=== PATIENT | male | born 1970 | race Caucasian/White ===

== ENCOUNTER 2020-08-18 08:36 | Outpatient (CLI) | payer BC, SELFPAY ==
[2020-08-18 09:03] LABS: Basophils Percent Auto 0.7 % (0.2-1.2); Eosinophils Absolute Auto 0.1 K/mm3 (0-0.3); Eosinophils Percent Auto 2.2 % (0-4.4); Hemoglobin 12.9 g/dL (14.0-18.0); Immature Granulocyte Absolute 0.01 K/mm3 (0.00-0.031); Immature Granulocyte Percent A 0.2 % (0-0.5); Lymphocytes Percent Auto 30.6 % (18.3-44.2); Mean Corpuscular HGB Conc 33.1 g/dl (32-36); Mean Corpuscular Hemoglobin 27.9 pg (26-34); Mean Corpuscular Volume 84.2 fl (80-100); Mean Platelet Volume 10.2 fl (7.4-10.4); Monocytes Absolute Auto 0.4 K/mm3 (0.1-0.6); Neutrophils Absolute Auto 3.3 K/mm3 (1.3-6.7); Neutrophils Percent Auto 59.3 % (45.5-73.1); Platelet Count Result 247 k/mm3 (150-375); Red Blood Count 4.63 M/mm3 (4.6-6.20); Red Cell Distribution Width 11.9 % (11.5-14.5); White Blood Count 5.6 K/mm3 (4.5-10.0)
[2020-08-18 09:15] LABS: Alanine Aminotransferase 43 U/L (4-50); Albumin Level 4.3 g/dL (3.5-5.1); Alkaline Phosphatase 94 U/L (38-126); Anion Gap 7 mmol/L (8-16); Aspartate Amino Transferase 32 U/L (17-59); Bilirubin,Total 0.5 mg/dL (0.2-1.3); Blood Urea Nitrogen 14 mg/dL (9-20); Calcium 8.9 mg/dL (8.4-10.2); Carbon Dioxide 30 mmol/L (22-30); Chloride 102 mmol/L (98-107); Cholesterol 203 mg/dL (0-200); Estimated Glomerular Filt Rate > 60; Glucose 116 mg/dL (75-110); HDL Direct 27 mg/dL; Potassium 4.3 mmol/L (3.4-5.0); Sodium 139 mmol/L (137-145); Triglycerides 113 mg/dL (<150); Uric Acid 7.3 mg/dL (3.5-8.5)
[2020-08-18 09:17] LABS: Hemoglobin A1C 5.6 % (<5.7)
[2020-08-18 09:25] LABS: LDL Cholesterol Direct 147 mg/dL
[2020-08-18 11:25] LABS: Erythrocyte Sedimentation Rate 17 mm/hr (0-20)
[2020-08-21 21:18] LABS: Vitamin D 1,25 (OH)2 Total 53 pg/mL (18-72); Vitamin D2 1,25 (OH)2 19 pg/mL; Vitamin D3 1,25 (OH)2 34 pg/mL
== END 2020-08-18 08:37 | disposition home or self-care (01) ==
LOC: ANHLAB 08:38
PROVIDERS: PCP Family Medicine; Visit Provider Physician Assistant
DX: M10.9 Gout, unspecified (principal); E78.2 Mixed hyperlipidemia; K21.9 Gastro-esophageal reflux disease without esophagitis; R73.01 Impaired fasting glucose; E55.9 Vitamin D deficiency, unspecified
CPT/HCPCS: 36415; 80053; 80061; 82652; 83036; 84550; 85025; 85652

== ENCOUNTER 2020-09-16 06:52 | Outpatient (NON) | payer BC, SELFPAY ==
[2020-09-16 19:01] LABS: SARS-CoV-2 RNA PCR Negative
== END 2020-09-16 06:53 ==
PROVIDERS: PCP Family Medicine; Visit Provider Family Medicine
DX: Z20.828 Contact with and (suspected) exposure to other viral communicable diseases (principal); R68.89 Other general symptoms and signs
CPT/HCPCS: 87635; C9803; U0003

== ENCOUNTER → 2021-01-15 08:16 | Outpatient (CLI) | payer BC, SELFPAY ==
[2021-01-15 20:12] LABS: SARS-CoV-2 RNA PCR Negative
== END ==
PROVIDERS: PCP Family Medicine; Visit Provider Physician Assistant
DX: R68.89 Other general symptoms and signs (principal); Z20.822 Contact with and (suspected) exposure to COVID-19
CPT/HCPCS: C9803; U0003; U0005

== ENCOUNTER → 2021-06-15 16:14 | Outpatient (CLI) | payer BC, SELFPAY ==
--- NOTE | ~2021-06-15 | XR_ITS ---
XR chest 2V DATE: 06/15/2021 16:32 INDICATION: Cough TECHNIQUE: PA and lateral views COMPARISON: 09/17/2019 PA and lateral chest FINDINGS: Borderline heart size. No hilar or mediastinal enlargement. No pulmonary infiltrate or consolidation, pleural effusion or pulmonary vascular congestion or pneumo thorax is detected. IMPRESSION: Borderline heart size No active pulmonary disease Reviewed, dictated and finalized at location A.
== END ==
PROVIDERS: PCP Family Medicine; Visit Provider Family Medicine
DX: R05 Cough (principal)
CPT/HCPCS: 71046

== ENCOUNTER 2021-06-18 10:41 | Outpatient (CLI) | payer BC, SELFPAY ==
[2021-06-18 11:05] LABS: Basophils Percent Auto 0.5 % (0.2-1.2); Eosinophils Absolute Auto 0.1 K/mm3 (0-0.3); Eosinophils Percent Auto 1.8 % (0-4.4); Hematocrit 43.6 % (42.0-52.0); Hemoglobin 14.1 g/dL (14.0-18.0); Immature Granulocyte Absolute 0.03 K/mm3 (0.00-0.031); Immature Granulocyte Percent A 0.4 % (0-0.5); Lymphocytes Absolute Auto 1.46 K/mm3 (0.9-3.2); Lymphocytes Percent Auto 18.6 % (18.3-44.2); Mean Corpuscular HGB Conc 32.3 g/dl (32-36); Mean Corpuscular Hemoglobin 28.1 pg (26-34); Mean Corpuscular Volume 86.9 fl (80-100); Mean Platelet Volume 9.9 fl (7.4-10.4); Monocytes Absolute Auto 0.4 K/mm3 (0.1-0.6); Monocytes Percent Auto 5.6 % (2.6-8.5); Neutrophils Absolute Auto 5.8 K/mm3 (1.3-6.7); Neutrophils Percent Auto 73.1 % (45.5-73.1); Platelet Count Result 213 k/mm3 (150-375); Red Blood Count 5.02 M/mm3 (4.6-6.20); Red Cell Distribution Width 12.2 % (11.5-14.5); White Blood Count 7.9 K/mm3 (4.5-10.0)
[2021-06-18 11:18] LABS: Alanine Aminotransferase 37 U/L (4-50); Albumin Level 4.5 g/dL (3.5-5.1); Alkaline Phosphatase 95 U/L (38-126); Anion Gap 9 mmol/L (8-16); Aspartate Amino Transferase 33 U/L (17-59); Bilirubin,Total 0.7 mg/dL (0.2-1.3); Blood Urea Nitrogen 14 mg/dL (9-20); Calcium 8.9 mg/dL (8.4-10.2); Carbon Dioxide 27 mmol/L (22-30); Chloride 104 mmol/L (98-107); Cholesterol 266 mg/dL (0-200); Estimated Glomerular Filt Rate > 60; Glucose 108 mg/dL (65-110); HDL Direct 35 mg/dL; Potassium 4.7 mmol/L (3.4-5.0); Sodium 140 mmol/L (137-145); Triglycerides 170 mg/dL (<150); Uric Acid 6.7 mg/dL (3.5-8.5)
[2021-06-18 11:28] LABS: LDL Cholesterol Direct 178 mg/dL
== END 2021-06-18 10:42 | disposition home or self-care (01) ==
LOC: ANHLAB 10:44
PROVIDERS: PCP Family Medicine; Visit Provider Family Medicine
DX: E78.2 Mixed hyperlipidemia (principal); E11.9 Type 2 diabetes mellitus without complications; E79.0 Hyperuricemia without signs of inflammatory arthritis and tophaceous disease; I10 Essential (primary) hypertension
CPT/HCPCS: 36415; 80053; 80061; 83036; 84550; 85025

== ENCOUNTER 2022-02-05 10:59 | Emergency (ER) | payer BC, SELFPAY ==
--- NOTE | ~2022-02-05 | CT_ITS ---
EXAMINATION: CT abdomen pelvis w con INDICATION: Epigastric pain TECHNIQUE: Computed tomographic images of the abdomen and pelvis were obtained after the administrati on of 100 cc of Omnipaque 350 intravenous contrast. The dose-length product (DLP) was 991.03 mGy-cm. Automated exposure control and iterative reconstruction technique were employed. COMPARISON: 02/10/2018 FINDINGS: Minimal dependent atelectasis is present in the lung bases. The heart size is normal. Punct ate calcifications in an otherwise normal spleen likely represent healed granulomatous disease. The l iver is diffusely low in attenuation when compared with the spleen, consistent with hepatic steatosis . The pancreas, gallbladder, and adrenal glands are normal. Cysts of the kidneys measure up to 1.9 cm on the left. There is an indeterminate 11 mm exophytic soft tissue attenuation mass of the right kid valdo lower pole. No pathologically enlarged abdominal or pelvic lymph nodes are identified. There is n o free intraperitoneal gas or evidence of bowel obstruction. The appendix is normal. There is mild sourav mbar spondylosis. IMPRESSION: 1. No CT correlate for the patient's symptoms. 2. Indeterminate right kidney mass. Further evaluation with nonemergent CT or MRI without and with co ntrast is recommended. Reviewed, dictated and finalized at location B. HERMAL PRODUCTION MANAGER IMPRESSION: 1. No CT correlate for the patient's symptoms. 2. Indeterminate right kidney mass. Further evaluation with nonemergent CT or M RI without and with contrast is recommended.
--- NOTE | ~2022-02-05 | XR_ITS ---
EXAMINATION: XR chest 2V DATE: 02/05/2022 11:33 INDICATION: Left chest pain. TECHNIQUE: Frontal and lateral views of the chest were obtained. COMPARISON: Chest 2 views 09/17/2019 FINDINGS: The chest demonstrates clear lungs without pneumonia, pleural effusion, or pneumothorax. Th e heart size is normal. IMPRESSION: 1. No acute cardiopulmonary disease. Reviewed, dictated and finalized at location A. ISION LAYOUT WORKER
--- NOTE | 2022-02-05 11:00 | ECG_ITS ---
Measurements Intervals [place] Rate: 61 P: 44 AK: 153 QRS: 29 QRSD: 90 T: 53 QT: 396 QTc: 401 Interpretive Statements SINUS RHYTHM NORMAL ECG COMPARED TO ECG 09/17/2019 19:50:42 NO SIGNIFICANT CHANGES Electronically Signed On 02-05-2022 15:16:43 AMMUNITION SPECIALIST by Mainor Quarles M.D.
[2022-02-05 11:17] VITALS: BP 138/76; PULSE 70; RESP 16; TEMP 36.5; O2SAT 99
[2022-02-05 11:27] LABS: Basophils Percent Auto 0.4 % (0.2-1.2); Eosinophils Absolute Auto 0.1 K/mm3 (0-0.3); Eosinophils Percent Auto 0.9 % (0-4.4); Hematocrit 43.4 % (42.0-52.0); Hemoglobin 14.1 g/dL (14.0-18.0); Immature Granulocyte Absolute 0.03 K/mm3 (0.00-0.031); Immature Granulocyte Percent A 0.4 % (0-0.5); Lymphocytes Absolute Auto 1.54 K/mm3 (0.9-3.2); Lymphocytes Percent Auto 19.8 % (18.3-44.2); Mean Corpuscular HGB Conc 32.5 g/dl (32-36); Mean Corpuscular Hemoglobin 28.5 pg (26-34); Mean Corpuscular Volume 87.9 fl (80-100); Monocytes Absolute Auto 0.4 K/mm3 (0.1-0.6); Monocytes Percent Auto 5.3 % (2.6-8.5); Neutrophils Absolute Auto 5.7 K/mm3 (1.3-6.7); Neutrophils Percent Auto 73.2 % (45.5-73.1); Platelet Count Result 212 k/mm3 (150-375); Red Blood Count 4.94 M/mm3 (4.6-6.20); Red Cell Distribution Width 12.4 % (11.5-14.5); White Blood Count 7.8 K/mm3 (4.5-10.0)
[2022-02-05 11:40] LABS: Alanine Aminotransferase 45 U/L (4-50); Albumin Level 4.5 g/dL (3.5-5.1); Alkaline Phosphatase 112 U/L (38-126); Anion Gap 10 mmol/L (8-16); Aspartate Amino Transferase 31 U/L (17-59); Bilirubin,Total 0.4 mg/dL (0.2-1.3); Blood Urea Nitrogen 14 mg/dL (9-20); Calcium 8.6 mg/dL (8.4-10.2); Carbon Dioxide 26 mmol/L (22-30); Chloride 105 mmol/L (98-107); Estimated Glomerular Filt Rate > 60; Glucose 105 mg/dL (65-110); Lipase 73 U/L (23-300); Potassium 4.4 mmol/L (3.4-5.0); Prothrombin Time 12.5 Seconds (11.1-14.7); Sodium 141 mmol/L (137-145)
[2022-02-05 11:41] LABS: Partial Thromboplastin Time 27.1 SECONDS (22.3-36.8)
[2022-02-05 11:51] LABS: Troponin I < 0.012 ng/mL (0.000-0.034)
[2022-02-05] MEDS: ASPIRIN 81 MG CHEWABLE TABLET 324 MG PO (13:00)
--- NOTE | 2022-02-05 13:24 | ED.CHESTPAIN ---
HPI - Chest Pain General Chief Complaint: Chest Pain Stated Complaint: CP Time Seen by Provider: 02/05/22 12:42 History of Present Illness HPI narrative: 52-year-old male presents to the emergency room with acute onset of midsternal chest discomfort. Patient states pain started at 845 this morning when he was sitting down at his desk. Patient describes the pain as a squeezing sensation, that is reproducible with inspiration. Denies radiating pain. Denies shortness of breath or difficulty breathing. Denies nausea or vomiting. Denies cardiac history. Does have a history of acid reflux, but states this pain is different. Denies alleviating or aggravating factors with the chest pain, other than inspiration Related Data Allergies Allergy/AdvReac Type Severity Reaction Status Date / Time No Known Allergies Allergy unknown Uncoded 06/18/21 09:30 Review of Systems Review of Systems: CONSTITUTIONAL: Denies fever, chills, or sweats. EYES: Denies visual changes, redness, or discharge. ENT: Denies rhinorrhea, congestion, sore throat, or otalgia. CARDIOVASCULAR: Reports chest pain. denies palpitations, or edema. RESPIRATORY: Denies cough or dyspnea. GASTROINTESTINAL: Denies abdominal pain, nausea, vomiting, or diarrhea. GENITOURINARY: Denies dysuria or hematuria. SKIN: Denies rash or itching. MUSCULOSKELETAL: Denies back pain, joint pain, or myalgia. NEUROLOGIC: Denies headache, numbness, dizziness, or weakness. PSYCHIATRIC: Denies anxiety or depression. [facility] Past Medical History Medical History Gout Mixed hyperlipidemia Prediabetes Vitamin D deficiency, unspecified Surgical History Surgical History History of umbilical hernia repair Family History Family History Mother Hypertension Father Hypertension Family history of malignant neoplasm Sibling Hypertension Other Diabetes mellitus Social History Social History Social History: Smoking status: Never smoker Second hand tobacco smoke exposure: No Alcohol intake: current Alcohol use details: occasionally Substance use: never Substance use type: does not use Gender identity (if verbalized by the patient): Male Sexual Orientation (if Verbalized by the Patient): Straight or Heterosexual Exam Narrative: GENERAL: Well-appearing, well-nourished, and in no acute distress. HEAD: Normocephalic, atraumatic. EYES: PERRLA and EOMI. ENT: Nares clear, no rhinorrhea or epistaxis. Mucous membranes moist. NECK: Supple. No adenopathy or masses. No carotid bruits or JVD CHEST: Clear to auscultation. No respiratory distress. No wheezes rales or rhonchi HEART: Regular rate and rhythm. No murmur heard. Normal peripheral pulses. ABDOMEN: Soft, nontender, nondistended, normal active bowel sounds. EXTREMITIES: Normal range of motion. No edema. SKIN: Warm, dry, no rash. NEURO: No focal deficits. Alert and oriented x3. PSYCH: Normal mood and affect. Course Vital Signs Vital signs: Vital Signs Temperature 36.5 C 02/05/22 11:17 Pulse Rate 70 02/05/22 11:17 Respiratory Rate 16 02/05/22 11:17 Blood Pressure 138/76 02/05/22 11:17 Pulse Oximetry 99 02/05/22 11:17 Temperature 36.5 C 02/05/22 11:17 Pulse Rate 70 02/05/22 11:17 Respiratory Rate 16 02/05/22 11:17 Blood Pressure 138/76 02/05/22 11:17 Pulse Oximetry 99 02/05/22 11:17 MDM - Chest Pain MDM Narrative Medical decision making narrative: 52-year-old male presented to emergency room with acute onset of epigastric discomfort, stating it felt like a squeezing sensation. CBC and CMP were unremarkable. Initial troponin and 3-hour troponin were both negative. Patient given a dose of GI cocktail with minimal relief. CT shows no correlat
[2022-02-05] MEDS: BELLADONNA ALK/PHENOB ELIX 10 ML, MAG HYDROX/ALUMINUM HYD/SIMETH 30 ML, LIDOCAINE HCL 2... PO (13:25)
[2022-02-05 14:21] LABS: D Dimer < 0.22 ug/mL (<0.48)
[2022-02-05 14:23] LABS: Troponin I < 0.012 ng/mL (0.000-0.034)
[2022-02-05 16:32] VITALS: BP 135/80; PULSE 63; RESP 18; O2SAT 98
== END 2022-02-05 16:33 | disposition home or self-care (01) ==
PROVIDERS: Emergency Medicine; Emergency Provider Nurse Practitioner Family; PCP Family Medicine
DX: K21.9 Gastro-esophageal reflux disease without esophagitis (principal); M10.9 Gout, unspecified; E78.2 Mixed hyperlipidemia; R73.03 Prediabetes; E55.9 Vitamin D deficiency, unspecified; N28.89 Other specified disorders of kidney and ureter
CPT/HCPCS: 36415; 71046; 74177; 80053; 83690; 84484; 85025; 85380; 85610; 85730; 93005; 99284; A9270; Q9967

== ENCOUNTER → 2022-02-19 12:48 | Outpatient (CLI) | payer BC, SELFPAY ==
--- NOTE | ~2022-02-19 | MR_ITS ---
EXAMINATION: MR abdomen wo/w con DATE: 02/19/2022 14:02 INDICATION: Right kidney mass. Other specified disorders of kidney and ureter. TECHNIQUE: Magnetic resonance imaging (MRI) of the abdomen was performed without and with 19 mL Multi Eduardo intravenous contrast. Sequences included coronal T2-weighted FS FSE, coronal and axial FIESTA F S, coronal LAVA-flex, axial LAVA, axial T2-weighted FSE, axial T1-weighted dual-echo FSPGR, axial STI R FSE, and axial DWI. Postcontrast sequences included coronal LAVA-flex and a time course of axial LA VA. COMPARISON: CT abdomen and pelvis 02/05/2022 FINDINGS: There is diffuse hepatic steatosis. There is cystic thickening of the wall of the fundus of the gallb ladder, consistent with adenomyomatosis. The spleen, pancreas, and adrenal glands are normal. There a re cysts in the kidneys measuring up to 2.4 cm on the left. There are no dilated loops of bowel. Ther e are no pathologically enlarged lymph nodes. There is no free intraperitoneal fluid. IMPRESSION: 1. Benign cysts in the kidneys. 2. Diffuse hepatic steatosis. Reviewed, dictated and finalized at location A.
== END ==
PROVIDERS: PCP Family Medicine; Visit Provider Nurse Practitioner Gerontology
DX: N28.1 Cyst of kidney, acquired (principal); K76.0 Fatty (change of) liver, not elsewhere classified
CPT/HCPCS: 74183; A9577

== ENCOUNTER 2022-03-16 12:17 | Outpatient (CLI) | payer BC, SELFPAY ==
[2022-03-16 12:51] LABS: Alanine Aminotransferase 41 U/L (4-50); Albumin Level 4.6 g/dL (3.5-5.1); Alkaline Phosphatase 98 U/L (38-126); Amylase 94 U/L (30-110); Aspartate Amino Transferase 27 U/L (17-59); Bilirubin,Total 0.3 mg/dL (0.2-1.3); Lipase 120 U/L (23-300)
== END 2022-03-16 12:18 | disposition home or self-care (01) ==
LOC: ANHSURGERY 12:22
PROVIDERS: PCP Family Medicine; Visit Provider Surgery
DX: K81.1 Chronic cholecystitis (principal); Z01.818 Encounter for other preprocedural examination
CPT/HCPCS: 36415; 80076; 82150; 83690; 86850; 86900; 86901

== ENCOUNTER 2022-03-17 00:58 | Day surgery (SDC) | payer BC, SELFPAY ==
[2022-03-10 13:39] VITALS: BMI 29.7
--- NOTE | 2022-03-10 13:47 | PC.NURSE ---
Report to the Outpatient Waiting Room, entrance under the green pavilion located off [facility], at time 11:30 on date 03/17/22. OR Time: 1:30. - You and your visitor will be asked a series of questions to screen for COVID 19 for your protection. - A mask is required within the hospital. One visitor will be allowed to accompany the patient into the hospital. Patients visitor will be instructed to remain with patient at all times or leave the building. We will allow the visitor to come back to the postoperative area when patient is ready. Preoperative COVID Testing Requirements: No COVID Test needed if: (proof is required; if not received patient will have Rapid Test prior to entry) - Patient has received COVID Vaccine at least 14 days prior to procedure date or - Patient has positive COVID test result within last 90 days of surgery date. COVID Test needed if above criteria is not met Patients may have clear liquids (water, carbonated beverages, clear teas, apple juice) until 3 hours prior to surgery (10:30) with a maximum of 20 ounces. - No food from midnight until time of surgery Take the following medications with a SIP of water the morning of surgery: NONE Medications to discontinue per physician: VITAMINS/SUPPLEMENTS Date to take last dose: 03/13/22 Please no make-up, nail costa rican, hairspray, perfume, deodorant, or body powder the day of surgery. No jewelry (including any body piercings) or valuables the day of surgery, leave them at home. Please take a shower or bath the night before, or the morning of, surgery with an antibacterial soap. Wear comfortable, loose fitting clothing. HIBICLENS SHOWER - Jewelry must be removed prior to entering the operating room. Rings and piercings that are not removed may be cut off. - The hospital will not accept responsibility for valuables. - Please leave all valuables, including medications, at home the day of surgery. If you are going home after surgery, a licensed spike driver must drive you home. - NO public transportation without another adult. - We recommend that an adult stay with you for 24 hours following discharge. - We also recommend that you do not drive, make important decision, drink alcoholic beverages, or take any drugs that were not prescribed by your health care provider for at least 24 hours after your discharge time. Follow any additional instructions given to you from your surgeon. Telephone instructions given to JOSE C GUERRERO and asked if any additional questions and then verbalized understanding. Patient advised to call surgeon office or pre surgery nurse liaison [phone] if any additional questions.
--- NOTE | 2022-03-16 13:41 | P.PNAN_ITS ---
Anes - Initial Pre Proc Eval Procedure: Operation Date: 03/17/22 08:00 Proposed Procedures p Laparoscopic Cholecystectomy - Suzi Harris MD Date/Time: 03/16/22 13:41 Surgeon: Suzi Harris MD Pre Op Diagnosis: chronic cholecystitis Patient Data Age: 52 Gender: M Height: 1.78 m Weight: 93.8 kg Allergies Allergy/AdvReac Type Severity Reaction Status Date / Time No Known Drug Allergies Allergy Unknown none Verified 03/17/22 06:24 Home Medications Medication Instructions Recorded Confirmed Type ergocalciferol (vitamin D2) 1,250 1,250 mcg PO WEEKLY #12 cap 08/15/20 03/17/22 Rx mcg (50,000 unit) capsule metformin 500 mg tablet,extended 500 mg PO BID #180 tablet 08/10/21 03/17/22 Rx release 24 hr esomeprazole magnesium 40 mg 40 mg PO DAILY #90 cap 12/28/21 03/17/22 Rx capsule,delayed release sildenafil 25 mg tablet 25 mg PO DAILY PRN #30 tablet 01/11/22 03/10/22 Rx allopurinol 100 mg tablet 100 mg PO DAILY 02/25/22 03/17/22 History Patient hx anesthesia problems: none Family hx anesthesia problems: none Results Review: All pre-operative results and documents have been reviewed as part of the pre-operative evaluation. [facility] Past Medical History Medical History (Updated 02/25/22 @ 10:13 by Kathy Pierce) GERD (gastroesophageal reflux disease) Gout Kidney stones Mixed hyperlipidemia Prediabetes Vitamin D deficiency, unspecified Surgical History Surgical History History of umbilical hernia repair 2016 OA Family History Family History Mother Hypertension Skin cancer Father Hypertension Leukemia Sibling Diabetes mellitus Social History Social History Social History: Smoking status: Never smoker Second hand tobacco smoke exposure: No Alcohol intake: current Drinks per week: 2 Alcohol use details: occasionally Substance use: never Substance use type: does not use Living arrangements: with family 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 Gender identity (if verbalized by the patient): Male Sexual Orientation (if Verbalized by the Patient): Straight or Heterosexual Spiritual care concerns: No Anes - Eval Final PreProcedure Day of Procedure 03/16/22 13:41 Patient weight: overweight Heart: regular rate and rhythm Lungs: clear to auscultation and normal air movement Airway: Mallampati scale class II Neurological: alert and oriented Last oral intake: >/= 8 hours ASA classification: II Emergent: no Anesthetic plan: proceed Anesthesia type and monitoring: general ETT and standard monitoring Results Review: All pre-operative results and documents have been reviewed as part of the pre-operative evaluation. Informed Consent: The patient's anesthetic plan and its attendant risks and benefits were discussed with the patient/family/POA. Questions were solicited and answers provided to the satisfaction of the patient/family/POA.
[2022-03-17] VITALS (12 sets, daily range): BP systolic 123–171; BP diastolic 71–93; PULSE 56–72; RESP 16–20; TEMP 36.3; O2SAT 95–100
[2022-03-17] MEDS: ACETAMINOPHEN 500 MG TABLET 1000 MG PO (06:34)
[2022-03-17 06:45] LABS: Glucose Point of Care 109 mg/dl (65-105)
[2022-03-17] MEDS: LACTATED RINGERS 1,000 ML 30 ML IV CONT ×3 (07:00→12:33)
[2022-03-17] MEDS: KETOROLAC 15 MG/ML VIAL (*BKC) IV PUSH ×2 (07:13→12:21)
--- NOTE | 2022-03-17 07:58 | WPDHPUPDATE1 ---
History and Physical Update Update Date/Time: 03/17/22 07:58 History and Physical has been reviewed, including an updated exam of the patient. There are NO changes in the patient's condition. Risks, benefits, and alternatives have been discussed and questions answered. Patient agrees to proceed with procedure.
[2022-03-17] MEDS: ceFAZolin 2 GM/D5W 50 ML 2 GM/50 ML BAG IVPB (08:06)
[2022-03-17 09:21] LABS: Glucose Point of Care 182 mg/dl (65-105)
--- NOTE | 2022-03-17 09:21 | W.PM.PROC2 ---
Procedure Note - Detailed Date of Procedure 03/17/22 Pre-op Diagnosis chronic cholecystitis Post-op Diagnosis Same Procedure Performed Laparoscopic cholecystectomy Surgeon Suzi Harris MD Anesthesia General Indications 52-year-old male with chronic cholecystitis Findings chronic cholecystitis Description of Procedure The patient was taken to the operating room placed in the supine position. After adequate induction of general anesthesia, the patient was prepped and draped in normal sterile fashion. A time-out was then performed to verify the patient's identity as well as the procedure being performed. I then made a 5 mm incision in the infraumbilical region. Through this, a Veress needle was placed into the peritoneal cavity and CO2 gas was then insufflated. After adequate pneumoperitoneum was achieved, the Veress needle was removed and a 5 mm optiview trocar was placed through this incision under direct visualization. I then placed the laparoscope through this trocar site and under direct visualization placed a further 12 mm subxiphoid port as well as 2 additional 5 mm ports in the right upper abdomen. The gallbladder was then identified and was noted to be moderately inflamed and distended. I was able to place a grasper at the dome of the gallbladder and this was retracted anterior and cephalad up over the liver. A 2nd retractor was then placed at the infundibulum and retracted laterally, this allowed visualization of the triangle of Calot. I then was able to visualize the cystic duct in its entirety from its proximal insertion into the gallbladder, to its distal junction with the common hepatic/common bile duct junction. At this point, I carefully skeletonized the proximal cystic duct with the [place] dissector. I then clipped and transected the proximal cystic duct. Next I visualized the cystic artery. Again the artery was skeletonized, clipped, and transected. I then used the Bovie cautery to take down the peritoneal attachments of the gallbladder off the liver bed. This was somewhat difficult given the amount of inflammation in the posterior space. Once the gallbladder specimen was completely detached, an endo-pouch was placed through the 12 mm port site. I then placed the gallbladder specimen into the Endo pouch and removed the endo-pouch from the 12 mm port site. The specimen will now be sent to pathology for further review. I then copiously irrigated the right upper quadrant. Some mild oozing was noted in the liver bed and this was controlled with the bovie cautery. I then placed some hemostatic powder in the liver bed. Hemostasis was noted in the liver bed, the clips were noted to be in good position on both the cystic duct stump and the cystic artery stump. No other pathology was noted in the right upper quadrant. I then moved the laparoscope to the subxiphoid port. No iatrogenic injury or other pathology was noted in the lower abdomen. I then closed the 12 mm trocar site under direct visualization using the Wing cone and 0 Vicryl suture. At this point, the abdomen was desufflated and all ports removed. All port sites were then closed with 4.O Monocryl subcuticular sutures. Dermabond was placed on each incision. The patient tolerated the procedure well, was extubated in the operating room postoperative and will be transferred to the recovery room in stable condition Estimated Blood Loss 20 Drains No Packing No Pathology Yes Complications No immediate complications Condition Stable Disposition PACU
[2022-03-17] MEDS: fentaNYL CITRATE INJ (*CRX) 100 MCG/2 ML VIAL 25 MCG IV PUSH ×4 (09:28→09:56)
[2022-03-17] MEDS: ONDANSETRON INJ 4 MG/2 ML VIAL IV PUSH (10:28)
[2022-03-17] MEDS: oxyCODONE HCL (*CRX) 5 MG TAB IR PO (10:57)
[2022-03-17] MEDS: diphenhydrAMINE HCl INJ 50 MG/ML VIAL 25 MG IV PUSH (12:16)
[2022-03-17] MEDS: SCOPOLAMINE 1.5 MG PATCH TRANSDERM (12:18)
== END 2022-03-17 13:25 | disposition home or self-care (01) ==
PROVIDERS: PCP Family Medicine; Visit Provider Surgery
PROC: 0FT44ZZ Resection of Gallbladder, Percutaneous Endoscopic Approach (ICD-10-PCS; CPT 47562; principal; 2022-03-17 08:00)
DX: K81.1 Chronic cholecystitis (principal); D13.5 Benign neoplasm of extrahepatic bile ducts; E78.2 Mixed hyperlipidemia; R73.03 Prediabetes; E55.9 Vitamin D deficiency, unspecified; K21.9 Gastro-esophageal reflux disease without esophagitis; M10.9 Gout, unspecified; Z79.84 Long term (current) use of oral hypoglycemic drugs
CPT/HCPCS: 47562; 82948; 88304; A9270; J0690; J1170; J1200; J1885; J2250; J2405; J2704; J2710; J3010; J7030; J7120

== ENCOUNTER 2022-08-24 09:51 | Outpatient (CLI) | payer BC, SELFPAY ==
[2022-08-24 10:47] LABS: Alanine Aminotransferase 38 U/L (6-50); Albumin Level 4.5 g/dL (3.5-5.1); Alkaline Phosphatase 96 U/L (38-126); Anion Gap 15 mmol/L (8-16); Aspartate Amino Transferase 27 U/L (17-59); Bilirubin,Total 0.3 mg/dL (0.2-1.3); Blood Urea Nitrogen 15 mg/dL (9-20); Calcium 8.9 mg/dL (8.4-10.2); Carbon Dioxide 25 mmol/L (22-30); Chloride 102 mmol/L (98-107); Cholesterol 238 mg/dL (0-200); Estimated Glomerular Filt Rate > 60; Glucose 115 mg/dL (65-110); HDL Direct 38 mg/dL; Potassium 4.2 mmol/L (3.4-5.0); Sodium 142 mmol/L (137-145); Triglycerides 141 mg/dL (<150); Uric Acid 7.6 mg/dL (3.5-8.5)
[2022-08-24 10:58] LABS: LDL Cholesterol Direct 154 mg/dL
[2022-08-24 10:59] LABS: Creatinine Urine 117.1 mg/dL
[2022-08-24 11:04] LABS: MALB Creatinine Ratio 16.6 mg/g (0-30); Microalbumin Urine Random 19.4 mg/L (0-16.7)
[2022-08-26 21:56] LABS: PSA, Free 0.44 ng/mL; PSA, Total 1.8 ng/mL (<=4.0)
== END 2022-08-24 09:52 | disposition home or self-care (01) ==
LOC: ANHLAB 09:54
PROVIDERS: PCP Family Medicine; Visit Provider Family Medicine
DX: E78.2 Mixed hyperlipidemia (principal); E11.9 Type 2 diabetes mellitus without complications; I10 Essential (primary) hypertension; E03.9 Hypothyroidism, unspecified; N40.1 Benign prostatic hyperplasia with lower urinary tract symptoms; E79.0 Hyperuricemia without signs of inflammatory arthritis and tophaceous disease
CPT/HCPCS: 36415; 80053; 80061; 82043; 83036; 84153; 84154; 84443; 84550

== ENCOUNTER 2023-07-26 09:20 | Outpatient (CLI) | payer BC, SELFPAY ==
--- NOTE | ~2023-07-26 | NM_ITS ---
EXAMINATION: NM cindy stress w perfusion DATE: 07/26/2023 12:06 INDICATION: Chest pain TECHNIQUE: Rest images were obtained following intravenous administration of 10.3 mCi Tc99m tetrofosm in (Myoview). The patient was infused intravenously with Lexiscan (Regadenoson). Then, 34.6 mCi Tc99m tetrofosmin (Myoview) was administered intravenously, and stress images were obtained, initially in the supine position with repeat post stress imaging obtained in the prone position. Data was reconstr ucted into short axis and horizontal and vertical long axis SPECT images. Gated SPECT images were als o obtained. COMPARISON: None. FINDINGS: On the post stress imaging in supine position there is some likely attenuation artifact kirill ng the anterior wall which normalizes on the repeat post stress imaging performed in the prone positi on. There is no definite reversible or fixed perfusion abnormality to suggest ischemia or infarction. There is normal left ventricular chamber size and wall motion with mildly decreased left ventricula r ejection fraction measuring 41%. IMPRESSION: 1. Normal myocardial perfusion at rest and during stress. 2. Left ventricular ejection fraction measuring 41%. Reviewed, dictated and finalized at location A.
--- NOTE | 2023-07-26 09:47 | EST_ITS ---
Patient Info Name: Sonny Jorge Age: 53 years : 1970 Gender: Male Ht: 70 in Wt: 218 lbs BSA: 2.24 m2 HR: 60 bpm BP: 120 / 84 mmHg Heart Rhythm: Sinus Rhythm Exam Date: 07/26/2023 10:44 AM Exam Location: [facility] Stress Patient Status: Outpatient Admit Date: 07/26/2023 Staff Ordering Physician: Vicki Boland PA-C Attending Provider: Vicki Boland PA-C Exercise Technologist: Kim Robles CT Exercise Physician: Brendan Arora DO Exam Type: CA stress cindy w NM Study Info Indications R07.89 - Other chest pain A regadenoson stress test was performed. Summary 1. 1. Negative lexiscan stress test for ischemic ST changes by ECG criteria. 2. 2. Stable hemodynamics throughout the test. 3. 3. Nuclear scan to follow and will be reported separately. Please correlate with it. 4. 4. Patient informed of the above results. Protocol: Lexiscan Stress ECG Details Stage: REST Duration (min): 1 min : 0 sec HR (bpm): 60 SBP (mmHg): 120 DBP (mmHg): 84 Stage: REST Duration (min): 14 min : 44 sec HR (bpm): 60 SBP (mmHg): 120 DBP (mmHg): 84 Stage: STAGE 1 Duration (min): 1 min : 0 sec HR (bpm): 73 SBP (mmHg): 118 DBP (mmHg): 80 Stage: RECOVERY Duration (min): 1 min : 0 sec HR (bpm): 86 SBP (mmHg): 118 DBP (mmHg): 80 Stage: RECOVERY Duration (min): 2 min : 0 sec HR (bpm): 77 SBP (mmHg): 118 DBP (mmHg): 80 Stage: RECOVERY Duration (min): 2 min : 53 sec HR (bpm): 74 SBP (mmHg): 146 DBP (mmHg): 86 Rest HR: 60 bpm Peak HR: 86 bpm Rest Sys BP: 120 mmHg Peak Sys BP: 146 mmHg Max Pred HR: 167 bpm % Max Pred HR: 51 % Target HR: 142 bpm Max RPP: 12,556 bpm*mmHg Termination Reason: Completed protocol Cardiac Symptoms: Shortness of breath Total Time: 1 min : 0 sec Rest Fang BP: 84 mmHg Peak Fagn BP: 86 mmHg Total Dose: 0.4 mg Resting ECG Sinus rhythm. Stress ECG No ST changes. Arrhythmias None. Report Signatures
== END 2023-07-26 09:21 | disposition home or self-care (01) ==
PROVIDERS: PCP Family Medicine; Visit Provider Physician Assistant
DX: R07.9 Chest pain, unspecified (principal)
CPT/HCPCS: 78452; 93017; A9502; J2785

== ENCOUNTER 2023-07-27 09:06 | Outpatient (CLI) | payer BC, SELFPAY ==
--- NOTE | 2023-07-29 13:48 | WPDHOMESLEEP ---
Sleep Study - Home Unattended Date of Study: 07/27/23 Ordering Provider: MAN Flores Interpreting Provider: Kristan Calhoun MD Home Sleep Study Type: Watch PAT Height: 1.78 m Weight: 97.522 kg Body Mass Index: 30.8 Neck Circumference (inches): 17 Gardner: 11 Reason for Sleep Study Hypersomnolence, insomnia Sleep History Sonny Jorge is a 53-year-old man with prediabetes and GERD who has fatigue and witnessed apneas. He presents for a home sleep test for evaluation of sleep apnea. He frequently awakens from sleep short of breath. He occasionally at night with heartburn, belching or coughing.??He frequently snores, frequently snores loudly enough that others complain. He frequently has trouble sleeping when he has a cold. He occasionally wakes up gasping for breath during the night. He frequently has breathing problems at night. He occasionally sweats excessively at night. He occasionally notices his heart pounding or beating irregularly during the night. He rarely falls asleep during the day. He never falls asleep involuntarily and never falls asleep while driving. He rarely experiences loss of muscle tone with strong emotion. He occasionally feels paralyzed on waking or falling asleep. He occasionally experiences vivid dreams upon waking or falling asleep. He never feel afraid of going to sleep. He occasionally has nightmares. He occasionally recalls his dreams. He frequently has thoughts racing through his mind. He rarely feels sad or depressed. He rarely feels anxiety or worry about things. He occasionally notices parts of his body jerk. He rarely kicks during the night. He rarely feels crawling or aching feelings in his legs. He rarely feels leg pain at night. He occasionally grinds his teeth and rarely has morning jaw pain. He occasionally feels bothered by pain during the day and is rarely awakened by pain during the night. He occasionally wakes up feeling stiff, sore, and achy in the morning, rarely with pain in his neck, spine, or joints. He has insomnia. Normal bedtime is 10:00 p.m. usually falling asleep within 1 hour. He typically gets about 5 to 6 hours hours of sleep per night. His wake up time is 6:00 a.m. He usually wakes 1-2 times during the night to go to the bathroom. These awakenings may last 30 minutes or longer. He does not generally take naps in the afternoon or evening. A short nap lasting 10 or 15 minutes is generally not refreshing. He is usually drowsy for 1 hour after waking. He feels better in the afternoon compared to the other times a day. Habits:??Tobacco: Never smoked tobacco. Caffeine: 2-3 servings daily. Alcohol: none. Recreational substances: none PMFSH Past Medical History Medical History GERD (gastroesophageal reflux disease) Gout Kidney stones Mixed hyperlipidemia Prediabetes Vitamin D deficiency, unspecified Surgical History Surgical History History of umbilical hernia repair 2016 OA Hx laparoscopic cholecystectomy 03/17/22 Family History Family History Mother Hypertension Skin cancer Father Hypertension Leukemia Sibling Diabetes mellitus Social History Social History Social History: Smoking status: Never smoker Second hand tobacco smoke exposure: No Alcohol intake: current Alcohol use details: occasionally Substance use: never Substance use type: does not use Living arrangements: with family Occupation/Education: occupation 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
[2023-07-29 14:01] VITALS: BMI 30.8
--- NOTE | 2023-08-02 10:58 | SLEEP ---
pt to return
== END 2023-07-28 12:39 | disposition home or self-care (01) ==
PROVIDERS: PCP Family Medicine; Visit Provider Physician Assistant
DX: G47.10 Hypersomnia, unspecified (principal); G47.33 Obstructive sleep apnea (adult) (pediatric)
CPT/HCPCS: 95800

== ENCOUNTER 2023-08-23 08:21 | Outpatient (CLI) | payer BC, SELFPAY ==
--- NOTE | 2023-09-15 16:19 | WPDSLEEPSTUD ---
Sleep Study Date of Study: 08/23/23 Ordering Provider: MAN Flores Interpreting Physician: Kristan Calhoun MD Sleep Study Type: CPAP Titration Height: 1.78 m Weight: 97.976 kg Body Mass Index: 30.9 Neck Circumference (inches): 17 Primrose: 11 Reason for Sleep Study * 07/27/2023 home sleep test using WatchPat showed severe obstructive sleep apnea, the apnea-hypopnea index is 64.9 with desaturation to 77% and loud frequent snoring.??The patient did not have significant central apneas, central AHI is 1.3 however he spent 11.9% the night with Wilmer-Ocampo respirations which is not normal.? It was recommended that he have an echocardiogram before his CPAP titration in the sleep lab, due to Wilmer-Ocampo breathing, severity of CLAUDIA and desaturation. Sleep History Sonny Jorge is a 53-year-old man with prediabetes and GERD who has fatigue and witnessed apneas.? He had severe obstructive sleep apnea with Wilmer-Ocampo breathing, returns for a CPAP titration. He frequently awakens from sleep short of breath. He occasionally awakens at night with heartburn, belching or coughing.??He frequently snores, frequently snores loudly enough that others complain. He frequently has trouble sleeping when he has a cold. He occasionally wakes up gasping for breath during the night. He frequently has breathing problems at night. He occasionally sweats excessively at night. He occasionally notices his heart pounding or beating irregularly during the night. He rarely falls asleep during the day. He never falls asleep involuntarily nor while driving. He rarely experiences loss of muscle tone with strong emotion. He occasionally feels paralyzed on waking or falling asleep. He occasionally experiences vivid dreams upon waking or falling asleep. He never feels afraid of going to sleep. He occasionally has nightmares. He occasionally recalls his dreams. He frequently has thoughts racing through his mind. He rarely feels sad or depressed. He rarely feels anxiety or worry about things. He occasionally notices parts of his body jerk. He rarely kicks during the night. He rarely feels crawling or aching feelings in his legs. He rarely feels leg pain at night. He occasionally grinds his teeth and rarely has morning jaw pain. He occasionally feels bothered by pain during the day and is rarely awakened by pain during the night. He occasionally wakes up feeling stiff, sore, and achy in the morning, rarely wakes with pain in his neck, spine, or joints.? He has insomnia. Normal bedtime is 10:00 p.m. usually falling asleep within 1 hour. He typically gets about 5 to 6 hours hours of sleep per night. His wake up time is 6:00 a.m. He usually wakes 1-2 times during the night to go to the bathroom.? These awakenings may last 30 minutes or longer.? He does not generally take naps in the afternoon or evening.? A short nap lasting 10 or 15 minutes is generally not refreshing.? He is usually drowsy for 1 hour after waking.? He feels better in the afternoon compared to the other times a day. Habits:??Tobacco:? Never smoked tobacco.? ? Caffeine: 2-3 servings daily. ? Alcohol:? none.? Recreational substances: none PMFSH Past Medical History Medical History (Updated 09/15/23 @ 16:22 by Kristan Calhoun MD) Wilmer-Ocampo breathing GERD (gastroesophageal reflux disease) Gout Kidney stones Mixed hyperlipidemia Obstructive sleep apnea Prediabetes Vitamin D deficiency, unspecified Surgical History Surgical History History of umbilical hernia repair 2016 OA Hx laparoscopic cholecystectomy 03/17/22 Family History Family History Mother Hypertension Skin cancer Father Hypertension Leukemia Sibling Diabetes mellitus Social History Social History Social History: Smoking status: Never smoker Second hand tob
[2023-09-15 16:20] VITALS: BMI 30.9
== END 2023-08-24 07:33 | disposition home or self-care (01) ==
LOC: ANHCSM 08:22
PROVIDERS: PCP Family Medicine; Visit Provider Physician Assistant
DX: G47.33 Obstructive sleep apnea (adult) (pediatric) (principal)
CPT/HCPCS: 95811

== ENCOUNTER 2023-09-14 11:18 | Outpatient (CLI) | payer BC, SELFPAY ==
[2023-09-14 11:59] LABS: Alanine Aminotransferase 50 U/L (6-50); Albumin Level 4.3 g/dL (3.5-5.1); Alkaline Phosphatase 97 U/L (38-126); Anion Gap 8 mmol/L (8-16); Aspartate Amino Transferase 29 U/L (17-59); Bilirubin,Total 0.6 mg/dL (0.2-1.3); Blood Urea Nitrogen 14 mg/dL (9-20); Calcium 8.9 mg/dL (8.4-10.2); Carbon Dioxide 28 mmol/L (22-30); Chloride 104 mmol/L (98-107); Cholesterol 266 mg/dL (0-200); Estimated Glomerular Filt Rate > 60; Glucose 110 mg/dL (65-110); HDL Direct 29 mg/dL; Potassium 4.1 mmol/L (3.4-5.0); Sodium 140 mmol/L (137-145); Triglycerides 181 mg/dL (<150)
[2023-09-14 12:09] LABS: LDL Cholesterol Direct 180 mg/dL
== END 2023-09-14 11:19 | disposition home or self-care (01) ==
LOC: ANHLAB 11:21
PROVIDERS: PCP Family Medicine; Visit Provider Internal Medicine Cardiovascular Disease
DX: E78.2 Mixed hyperlipidemia (principal)
CPT/HCPCS: 36415; 80053; 80061; 83036; 84443

== ENCOUNTER 2023-09-29 07:28 | Outpatient (CLI) | payer BC, SELFPAY ==
--- NOTE | 2023-09-29 07:51 | ECHO_ITS ---
Patient Info Name: Sonny Jorge Age: 53 years : 1970 Gender: Male Ht: 70 in Wt: 214 lbs BSA: 2.22 m2 HR: 61 bpm BP: 130 / 80 mmHg Technical Quality: Fair Exam Date: 09/29/2023 8:15 AM Exam Location: Echo Lab Patient Status: Outpatient Admit Date: 09/29/2023 Staff Ordering Physician: Brendan Arora DO Electronic Publications Specialist: Karly Verdugo RDCS Attending Provider: Brendan Arora DO Referring Physician: Ulysses MCLAIN; Exam Type: CA echo doppler color flow Study Info Indications R06.09 - Other forms of dyspnea Complete two-dimensional, color flow and Doppler transthoracic echocardiogram is performed. Summary 1. Complete two-dimensional, color flow and Doppler transthoracic echocardiogram is performed. 2. Left ventricular chamber dimension is normal. 3. Left ventricular systolic function is normal, estimated at 55-60%. 4. E/e' 12 is mildly elevated. 5. There is mild aortic valve sclerosis. 6. There is trace mitral valve regurgitation. 7. There is mild tricuspid valve regurgitation. 8. No pulmonary hypertension, estimated pulmonary arterial systolic pressure is 28 mmHg. Left Ventricle E/e' 12 is mildly elevated. Left ventricular chamber dimension is normal. Left ventricular systolic function is normal, estimated at 55-60%. Right Ventricle Right ventricular systolic function is normal and with normal TAPSE 2.4 cm. Right ventricular chamber dimension is normal. Left Atria Left atrial chamber dimension is normal. Right Atria Right atrial chamber dimension is normal. Aortic Valve The aortic valve is trileaflet. There is mild aortic valve sclerosis. There is no aortic valve stenosis. There is no aortic valve regurgitation. Pulmonic Valve There is no pulmonic regurgitation. Mitral Valve There is no mitral valve stenosis. There is trace mitral valve regurgitation. Tricuspid Valve There is mild tricuspid valve regurgitation. No pulmonary hypertension, estimated pulmonary arterial systolic pressure is 28 mmHg. Pericardium/Pleural There is no pericardial effusion. Inferior Vena Cava Normal inferior vena cava with >50% collapse upon inspiration consistent with normal right atrial pressure, 5 mmHg. Aorta The aortic root size at the sinus of Valsalva is normal. Left Ventricular Outflow Tract Name Value Normal LVOT 2D LVOT Diameter 1.9 cm LVOT Doppler LVOT Peak Gradient 4 mmHg LVOT Mean Gradient 2 mmHg LVOT VTI 21 cm LVOT VTI/AV VTI Ratio 0.7 LVOT Stroke Volume 63 ml LVOT CO 3.6 l/min LVOT CI 1.6 l/min/m2 Pulmonic Valve Name Value Normal RVOT Doppler RVOT Peak Gradient 2 mmHg PV Doppler PV Peak Gradient 4 mmHg
== END 2023-09-29 07:29 | disposition home or self-care (01) ==
PROVIDERS: PCP Family Medicine; Visit Provider Internal Medicine Cardiovascular Disease
DX: R06.09 Other forms of dyspnea (principal); I36.1 Nonrheumatic tricuspid (valve) insufficiency
CPT/HCPCS: 93306

== ENCOUNTER 2023-11-07 08:56 | Inpatient (IN) | payer BC, SELFPAY ==
[2023-11-07] VITALS (7 sets, daily range): BP systolic 129–157; BP diastolic 78–91; PULSE 73–79; RESP 16–20; TEMP 36.3–36.6; O2SAT 95–100; BMI 30.7
--- NOTE | ~2023-11-07 | CT_ITS ---
EXAMINATION: CT abdomen pelvis w con INDICATION: Abdominal pain and vomiting TECHNIQUE: Computed tomographic images of the abdomen and pelvis were obtained after the administrati on of 100 cc of Omnipaque 350 intravenous contrast. The dose-length product (DLP) was 1051.05 mGy-cm. Automated exposure control and iterative reconstruction technique were employed. COMPARISON: 02/05/2022 FINDINGS: Minimal dependent atelectasis is present in the lung bases. The heart size is normal. There is a small sliding hiatal hernia. Punctate calcifications in an otherwise normal spleen likely repre sent healed granulomatous disease. The liver is diffusely low in attenuation when compared with the s pleen, consistent with hepatic steatosis. Changes of cholecystectomy are noted. Cyst of the kidneys m easure up to 3.2 cm on the left. No pathologically enlarged abdominal or pelvic lymph nodes are ident ified. There are no dilated loops of bowel. There is a greater than normal number of fluid-filled, no ndistended large and small bowel bowel loops. There is liquid stool in the colon to the level of the rectum. There is mild lumbar spondylosis. IMPRESSION: 1. Greater than normal number of fluid-filled, nondistended loops of large and small bowel, likely en terocolitis. 2. Diffuse hepatic steatosis. Reviewed, dictated and finalized at location B. [employer]IPMENT [employer]ST[employer] IMPRESSION: 1. Greater than normal number of fluid-filled, nondistended loops of large and small bowel, likely enterocolitis. 2. Diffuse hepatic steatosis.
[2023-11-07 09:27] LABS: Basophils Percent Auto 0.1 % (0.2-1.2); Hematocrit 52.8 % (42.0-52.0); Hemoglobin 16.7 g/dL (14.0-18.0); Immature Granulocyte Absolute 0.12 K/mm3 (0.00-0.031); Immature Granulocyte Percent A 0.6 % (0-0.5); Lymphocytes Absolute Auto 0.93 K/mm3 (0.9-3.2); Lymphocytes Percent Auto 4.8 % (18.3-44.2); Mean Corpuscular HGB Conc 31.6 g/dl (32-36); Mean Corpuscular Hemoglobin 27.5 pg (26-34); Mean Platelet Volume 10.3 fl (7.4-10.4); Monocytes Absolute Auto 0.3 K/mm3 (0.1-0.6); Monocytes Percent Auto 1.5 % (2.6-8.5); Neutrophils Absolute Auto 18.1 K/mm3 (1.3-6.7); Platelet Count Result 384 k/mm3 (150-375); Red Blood Count 6.07 M/mm3 (4.6-6.20); Red Cell Distribution Width 12.4 % (11.5-14.5); White Blood Count 19.5 K/mm3 (4.5-10.0)
[2023-11-07] MEDS: ONDANSETRON INJ 4 MG/2 ML VIAL IV PUSH ×2 (09:30→14:33)
[2023-11-07] MEDS: MORPHINE SULFATE (*CRX) 4 MG/ML INJ IV PUSH (09:30)
--- NOTE | 2023-11-07 09:37 | ED.NAVMDI ---
HPI - Nausea/Vomiting/Diarrhea General Chief complaint: Nausea/Vomiting/Diarrhea <Emmie Cartwright PA-C - Last Filed: 11/07/23 12:19> Stated complaint: n/v <MAGY Guzman Last Filed: 11/07/23 12:19> Time Seen by Provider: 11/07/23 09:11 <Emmie Cartwright PA-C - Last Filed: 11/07/23 12:19> Source: patient <MAGY Guzman Last Filed: 11/07/23 12:19> Mode of arrival: ambulatory <MAGY Guzman Last Filed: 11/07/23 12:19> Limitations: no limitations <MAGY Guzman Last Filed: 11/07/23 12:19> History of Present Illness HPI Narrative: This is a 53 year old male that presents to the ER for abdominal pain. Ongoing since yesterday. Reports history of bowel obstruction and his pain feels similar. He had a small bowel movement yesterday which was diarrhea. Denies fevers. <MAGY Guzman Last Filed: 11/07/23 12:19> Related Data Home medications: Home Medications Medication Instructions Recorded Confirmed esomeprazole magnesium 40 mg 40 mg PO DAILY 11/07/23 11/07/23 capsule,delayed release metformin 500 mg tablet,extended 500 mg PO BID PRN high blood sugar 11/07/23 11/07/23 release 24 hr sildenafil 25 mg tablet 25 mg PO DAILY PRN Sexual Activity 11/07/23 11/07/23 <MAGY Guzman Last Filed: 11/07/23 12:19> Allergies/Adverse reactions: Allergies Allergy/AdvReac Type Severity Reaction Status Date / Time No Known Drug Allergies Allergy Unknown none Verified 11/07/23 09:21 <MAGY Guzman Last Filed: 11/07/23 12:19> Review of Systems Review of Systems: CONSTITUTIONAL: Denies fever GASTROINTESTINAL: Reports abdominal pain, nausea, vomiting, and diarrhea. <MAGY Guzman Last Filed: 11/07/23 12:19> All systems reviewed & are unremarkable except as noted in HPI and below <Emmie Cartwright PA-C - Last Filed: 11/07/23 12:19> PMFSH Past Medical History Medical History: Medical History (Updated 11/07/23 @ 13:43 by Piedad Reilly PA-C) Gastroesophageal reflux disease Gout Kidney stones Mixed hyperlipidemia Obstructive sleep apnea Prediabetes Systolic dysfunction Vitamin D deficiency, unspecified <Emmie Cartwright PA-C - Last Filed: 11/07/23 12:19> Surgical History Surgical History: Surgical History (Updated 11/07/23 @ 13:31 by Piedad Reilly PA-C) History of laparoscopic cholecystectomy (02/2022) History of umbilical hernia repair (2015) <Emmie Cartwright PA-C - Last Filed: 11/07/23 12:19> Family History Family History: Family History Mother Hypertension Skin cancer Father Hypertension Leukemia Sibling Diabetes mellitus <Emmie Cartwright PA-C - Last Filed: 11/07/23 12:19> Social History Social History: Social History (Updated 11/07/23 @ 13:38 by Piedad Reilly PA-C) Social History: Surrogate medical decision maker: Code status: Full code. Smoking status: Never smoker Second hand tobacco smoke exposure: No Alcohol intake: current Drinks per week: 1 Alcohol use details: Social alcohol use in moderation. 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 Spiritual care concerns: No <Emmie Cartwright PA-C - Last Filed: 11/07/23 12:19> Exam Narrative: GENERAL: Well-appearing, well-nourished, and in no acute distress. HEAD: Normocephalic, atraumatic. EYES: EOMI. ENT: Mucous membranes moist. CHEST:
[2023-11-07 09:38] LABS: Lactic Acid Reflex 3.1 mmol/L (0.7-2.0)
[2023-11-07 09:40] LABS: Alanine Aminotransferase 69 U/L (6-50); Albumin Level 5.4 g/dL (3.5-5.1); Alkaline Phosphatase 162 U/L (38-126); Anion Gap 19 mmol/L (8-16); Aspartate Amino Transferase 32 U/L (17-59); Bilirubin,Total 0.9 mg/dL (0.2-1.3); Blood Urea Nitrogen 19 mg/dL (9-20); Calcium 10.2 mg/dL (8.4-10.2); Carbon Dioxide 21 mmol/L (22-30); Chloride 103 mmol/L (98-107); Estimated CRCL calculation 42 ml/min; Estimated Glomerular Filt Rate 31; Glucose 230 mg/dL (65-110); Lipase 63 U/L (23-300); Sodium 143 mmol/L (137-145)
[2023-11-07] MEDS: SODIUM CHLORIDE 0.9% IV 1,000 ML 999 ML IV CONT ×3 (09:47→11:33)
--- NOTE | 2023-11-07 09:48 | PC.NURSE ---
Pt to CT scan via stretcher at this time, fluids infusing
[2023-11-07 09:51] LABS: Appearance Urine Cloudy (Clear); Bacteria Urine None Seen /hpf; Bilirubin Urine Negative (Negative); Blood Urine Trace (Negative); Color Urine Dark Yellow (Yellow); Glucose Urine UA Negative (Negative); Ketones Urine Trace mg/dL (Negative); Leukocyte Esterase Ur Negative LEU/UL (Negative); Nitrate Urine Negative (Negative); Protein Urine 3+ mg/dL (Negative); RBC Urine 0-2 /hpf (0-2); Specific Grav Ur 1.024 (1.001-1.035); Squamous Epithelial Cell Urine None seen /hpf (Few); Urobilinogen Urine 0.2 mg/dL (<2.0); WBC Urine 0-5 /hpf; pH Urine 5.5 (5.0-9.0)
[2023-11-07 10:04] LABS: Add Urine Microscopic? YES
[2023-11-07] MEDS: metroNIDAZOLE 500 MG/ISO 100ML 500 MG/100 ML BAG 100 MG IVPB ×2 (11:29→17:37)
[2023-11-07 12:24] LABS: Reflex Lactic Acid Yes or No Add Lactic
--- NOTE | 2023-11-07 12:34 | ADMGEN ---
This patient, Sonny Jorge, was admitted to 2 Medical Room 256-. Patient/family oriented to hospital policies and general routines including ID bracelet, bed and alarms, visiting hours, pain management, procedures, bathroom and other care routines, personal items, smoking policy, room service/diet, and visiting hours. Information on how to activate the Rapid Response Team has been discussed. Patient/Family are encouraged to report perceived risks to care and to ask questions if they do not understand what they are told or what they should do.
--- NOTE | 2023-11-07 12:54 | PM.IMHP ---
H&P: HPI History of Present Illness Date/Time: 11/07/23 13:00 Chief Complaint: Nausea, vomiting, abdominal pain. Narrative: This is a 53-year-old male with history of small bowel obstruction, kidney stones, gastroesophageal reflux disease, obstructive sleep apnea, systolic dysfunction (EF 41% on Brittany stress 06/2023), dyslipidemia, prediabetes, and gout who presented to the emergency department for evaluation of nausea, vomiting, and abdominal pain. The patient provides the following history. Yesterday afternoon around 14:00 he developed diffuse abdominal discomfort and not long thereafter he developed nonbloody and nonbilious emesis and mucousy but nonbloody diarrhea. He reports that vomited and had diarrhea almost every hour for the 1st 24 hours. He has been weak and chilled since that time. His urine output has decreased. The symptoms are somewhat similar to when he had a bowel obstruction and he came in today for evaluation. He denies documented fever, recent travel, recent antibiotic use, and known sick contacts. He has not prepared any raw meat recently. No personal or family history of inflammatory bowel disease. In the ED: He was afebrile on arrival with stable blood pressures. Labs were significant for WBC count 19.5, hematocrit 52.8%, creatinine 2.20, lactic acid 3.1, albumin 5.4, total protein 10.0. CT scan showed findings of likely enterocolitis. He received 3 L normal saline with improvement his lactic acid level. He was also given a g of ceftriaxone and 500 mg of metronidazole. He is being admitted in this setting for further treatment and evaluation. Review of Systems Review of Systems: Twelve systems were reviewed and are negative except for as per HPI. [facility] Past Medical History Medical History (Updated 11/07/23 @ 13:43 by Piedad Reilly PA-C) Gastroesophageal reflux disease Gout Kidney stones Mixed hyperlipidemia Obstructive sleep apnea Prediabetes Systolic dysfunction Vitamin D deficiency, unspecified Surgical History Surgical History (Updated 11/07/23 @ 13:31 by Piedad Reilly PA-C) History of laparoscopic cholecystectomy (02/2022) History of umbilical hernia repair (2015) Family History Family History Mother Hypertension Skin cancer Father Hypertension Leukemia Sibling Diabetes mellitus Social History Social History (Updated 11/07/23 @ 20:41 by Piedad Reilly PA-C) Social History: Surrogate medical decision maker: Rebekah Ferrellt, spouse. Code status: Full code. Smoking status: Never smoker Second hand tobacco smoke exposure: No Alcohol intake: current Drinks per week: 1 Alcohol use details: Social alcohol use in moderation. 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 Spiritual care concerns: No Meds Home Medications and Allergies Home Medications Medication Instructions Recorded Confirmed Type atorvastatin 40 mg tablet 40 mg PO DAILY #30 tabs 09/14/23 11/07/23 Rx esomeprazole magnesium 40 mg 40 mg PO DAILY 11/07/23 11/07/23 History capsule,delayed release metformin 500 mg tablet,extended 500 mg PO BID PRN high blood sugar 11/07/23 11/07/23 History release 24 hr sildenafil 25 mg tablet 25 mg PO DAILY PRN Sexual Activity 11/07/23 11/07/23 History Allergies Allergy/AdvReac Type Severity Reaction Status Date / Time No Known Drug Allergies Allergy Unknown none Verified 11/07/23 09:21 Vital Signs Vital Signs - 24 hr
[2023-11-07 13:06] LABS: Lactic Acid 1.3 mmol/L (0.7-2.0)
[2023-11-07] MEDS: LACTATED RINGERS 1,000 ML 75 ML IV CONT (14:32)
[2023-11-07 16:59] LABS: Glucose Point of Care 99 mg/dl (65-105)
[2023-11-07] MEDS: PANTOPRAZOLE SODIUM IV 40 MG VIAL IV PUSH (20:25)
[2023-11-07 21:08] LABS: Anion Gap 10 mmol/L (8-16); Blood Urea Nitrogen 17 mg/dL (9-20); Carbon Dioxide 21 mmol/L (22-30); Chloride 108 mmol/L (98-107); Estimated CRCL calculation 64 ml/min; Estimated Glomerular Filt Rate 53; Glucose 110 mg/dL (65-110); Potassium 3.7 mmol/L (3.4-5.0); Sodium 139 mmol/L (137-145)
--- NOTE | 2023-11-07 22:10 | PC.NURSE ---
2130 received report from Roya. upon assessment patient resting in bed. side rails up and call light in hand. patient denies pain. VSS. will continue to monitor
[2023-11-08] VITALS (7 sets, daily range): BP systolic 105–124; BP diastolic 57–69; PULSE 64–94; RESP 18–20; TEMP 36.2–36.9; O2SAT 95–100
[2023-11-08] MEDS: metroNIDAZOLE 500 MG/ISO 100ML 500 MG/100 ML BAG 100 MG IVPB ×3 (01:35→17:47)
[2023-11-08 03:24] LABS: Glucose Point of Care 110 mg/dl (65-105)
[2023-11-08 06:27] LABS: Hematocrit 38.7 % (42.0-52.0); Hemoglobin 12.4 g/dL (14.0-18.0); Mean Corpuscular Hemoglobin 27.8 pg (26-34); Mean Corpuscular Volume 86.8 fl (80-100); Mean Platelet Volume 10.1 fl (7.4-10.4); Platelet Count Result 206 k/mm3 (150-375); Red Blood Count 4.46 M/mm3 (4.6-6.20); Red Cell Distribution Width 12.5 % (11.5-14.5)
[2023-11-08 06:44] LABS: Alanine Aminotransferase 39 U/L (6-50); Albumin Level 3.6 g/dL (3.5-5.1); Alkaline Phosphatase 100 U/L (38-126); Anion Gap 9 mmol/L (8-16); Aspartate Amino Transferase 27 U/L (17-59); Bilirubin,Total 0.7 mg/dL (0.2-1.3); Blood Urea Nitrogen 18 mg/dL (9-20); Calcium 8.8 mg/dL (8.4-10.2); Carbon Dioxide 21 mmol/L (22-30); Chloride 110 mmol/L (98-107); Estimated CRCL calculation 69 ml/min; Estimated Glomerular Filt Rate 58; Glucose 125 mg/dL (65-110); Potassium 3.6 mmol/L (3.4-5.0); Sodium 140 mmol/L (137-145)
[2023-11-08 08:21] LABS: Glucose Point of Care 126 mg/dl (65-105)
[2023-11-08] MEDS: PANTOPRAZOLE 40 MG TABLET PO (08:34)
[2023-11-08] MEDS: ATORVASTATIN 40 MG TABLET PO (08:34)
[2023-11-08] MEDS: ENOXAPARIN 40 MG/0.4 ML SYRINGE SUB-Q (08:34)
[2023-11-08 11:55] LABS: Glucose Point of Care 87 mg/dl (65-105)
--- NOTE | 2023-11-08 13:57 | WPDGICN ---
Assessment and Plan Assessment and plan (1) Enterocolitis: Code(s): K52.9 - Noninfective gastroenteritis and colitis, unspecified Status: Acute Assessment and Plan: cultures pending started on abx, already feeling better consider colonoscopy as outpatient in several more weeks advance diet as tolerated (2) Sepsis: Code(s): A41.9 - Sepsis, unspecified organism Status: Acute Assessment and Plan: on admission and receiving abx wbc improved feeling better medical support (3) Acute kidney injury: Code(s): N17.9 - Acute kidney failure, unspecified Status: Acute Assessment and Plan: on iv fluids and renal function better from diarrhea/dehydration (4) Dehydration: Code(s): E86.0 - Dehydration Status: Acute Assessment and Plan: treated GI Consult Note Consult date/time: 11/08/23 13:57 Reason for consult: n/v, diarrhea HPI: Sonny Jorge is a 53 year old male with history of small bowel obstruction, gastroesophageal reflux disease, obstructive sleep apnea, systolic dysfunction (EF 41% on Brittany stress 06/2023) who presented to the emergency department for new onset of nausea, vomiting, abdominal pain with bloating and loose stools that started Tuesday. It started with diffuse abdominal discomfort then nausea and nonbilious emesis with several episodes of diarrhea, also had chills. ER showed WBC count 19.5, hematocrit 52.8%, creatinine 2.20, lactic acid 3.1, albumin 5.4, total protein 10.0. CT scan showed findings of likely enterocolitis, started on antibiotics, feeling better now. Denies sick contacts, last colonoscopy about 3 years ago. Review of Systems Constitutional: Constitutional: Reports chills Eyes: Eyes: Denies blurry vision ENT: Reports Normal hearing present Cardiovascular: Cardiovascular: Denies chest pain Respiratory: Respiratory: Denies cough Gastrointestinal: Gastrointestinal: Reports abdominal pain, Reports diarrhea, Reports nausea and Reports vomiting Genitourinary: Genitourinary: Denies hematuria Musculoskeletal: Musculoskeletal: Denies neck pain Integumentary/Breasts: Skin/Breast: Denies rash Neurologic: Denies confusion Psychiatric: Psychiatric: Denies behavioral changes [facility] Past Medical History Medical History (Updated 11/07/23 @ 13:43 by Piedad Reilly PA-C) Gastroesophageal reflux disease Gout Kidney stones Mixed hyperlipidemia Obstructive sleep apnea Prediabetes Systolic dysfunction Vitamin D deficiency, unspecified Surgical History Surgical History (Updated 11/07/23 @ 13:31 by Piedad Reilly PA-C) History of laparoscopic cholecystectomy (02/2022) History of umbilical hernia repair (2015) Family History Family History Mother Hypertension Skin cancer Father Hypertension Leukemia Sibling Diabetes mellitus Social History Social History (Updated 11/07/23 @ 20:41 by Piedad Reilly PA-C) Social History: Surrogate medical decision maker: Rebekah Jorge, spouse. Code status: Full code. Smoking status: Never smoker Second hand tobacco smoke exposure: No Alcohol intake: current Drinks per week: 1 Alcohol use details: Social alcohol use in moderation. 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 Spiritual care concerns: No Meds Home Medications and Allergies Home Medications Medication Instructions Recorded Confirmed Type atorva
--- NOTE | 2023-11-08 15:00 | P.PNIM_ITS ---
Progress Note: A&P Assessment and Plan (1) Sepsis: Code(s): A41.9 - Sepsis, unspecified organism Status: Acute Assessment and Plan: * Supported by leukocytosis, lactic acidosis, and acute kidney injury in the se tting of enterocolitis. * Received 3 L normal saline in the ED with normalization of lactic acid level. * stool cultures ordered * BC pending (2) Enterocolitis: Code(s): K52.9 - Noninfective gastroenteritis and colitis, unspecified Status: Acute Assessment and Plan: * Presumably infectious. * Continue ceftriaxone and metronidazole * Stool studies ordered * tolerating liquids, advance diet as tolerated * GI following, may need colonoscopy outpatient (3) Acute kidney injury: Code(s): N17.9 - Acute kidney failure, unspecified Status: Acute Assessment and Plan: * IVF as needed, tolerating PO * Avoid nephrotoxic agents and renally dose all medications. * creatinine and GFR improved today (4) Dehydration: Code(s): E86.0 - Dehydration Status: Acute Assessment and Plan: * Plan is as detailed above. (5) Systolic dysfunction: Code(s): I51.9 - Heart disease, unspecified Status: Acute Assessment and Plan: * EF was 41% on Lexiscan stress in June 2023. * Monitor volume status and daily weights while cautiously hydrating. (6) Gastroesophageal reflux disease: Code(s): K21.9 - Gastro-esophageal reflux disease without esophagitis Status: Acute Assessment and Plan: * Continue pantoprazole. (7) Prediabetes: Code(s): R73.03 - Prediabetes Status: Acute Assessment and Plan: * Random glucose on arrival was 230. * Hold metformin as she received IV contrast. * Initiate sliding scale insulin, Accu-Cheks, and hypoglycemic protocol. (8) Obstructive sleep apnea: Code(s): G47.33 - Obstructive sleep apnea (adult) (pediatric) Status: Acute Assessment and Plan: * Patient may use CPAP from home. Subjective Date/time seen: 11/08/23 15:00 Interval history: Patient is reporting improvement in his abdominal pain and is tolerating clear liquids without issue this morning. Prior to admission he felt chills, feverish and malaise but is feeling much better now. Continue AB, advance diet as tolerated as he would like to try full liquids for lunch. GI consulted and recommends colonoscopy outpatient, and to continue current management. Dehydration improved with overnight IVF. Stool culture ordered, BC pending. Continue to monitor and plan for d/c when tolerating PO intake and labs are stable. Review of Systems Review of Systems: All systems reviewed & are unremarkable except as noted in HPI and below Exam Narrative: General: well-nourished, slightly pale gentleman sitting up in bed in no acute distress. HEENT: Normocephalic, atraumatic. PERRL, EOMI. Tacky mucous membranes. Neck: Supple. Respiratory: Lungs are clear to auscultation bilaterally. Cardiovascular: RRR with S1-S2. Gastrointestinal: Abdomen is soft and protuberant with active bowel sounds. He has mild tenderness to palpation throughout. No guarding or rebound. Skin: Warm and dry. Extremities: No cyanosis, clubbing, or edema. Radial and pedal pulses intact. Neurological: A&O x3. Cranial nerves 2-12 are grossly intact. No gross focal deficits to casual conversation. Psychiatric: Pleasant and cooperative with normal mo
--- NOTE | 2023-11-08 15:00 | PM.IMPN ---
Progress Note: A&P Assessment and Plan (1) Sepsis: Code(s): A41.9 - Sepsis, unspecified organism Status: Acute Assessment and Plan: Supported by leukocytosis, lactic acidosis, and acute kidney injury in the setting of enterocolitis. Received 3 L normal saline in the ED with normalization of lactic acid level. stool cultures ordered BC pending (2) Enterocolitis: Code(s): K52.9 - Noninfective gastroenteritis and colitis, unspecified Status: Acute Assessment and Plan: Presumably infectious. Continue ceftriaxone and metronidazole Stool studies ordered tolerating liquids, advance diet as tolerated GI following, may need colonoscopy outpatient (3) Acute kidney injury: Code(s): N17.9 - Acute kidney failure, unspecified Status: Acute Assessment and Plan: IVF as needed, tolerating PO Avoid nephrotoxic agents and renally dose all medications. creatinine and GFR improved today (4) Dehydration: Code(s): E86.0 - Dehydration Status: Acute Assessment and Plan: Plan is as detailed above. (5) Systolic dysfunction: Code(s): I51.9 - Heart disease, unspecified Status: Acute Assessment and Plan: EF was 41% on Lexiscan stress in June 2023. Monitor volume status and daily weights while cautiously hydrating. (6) Gastroesophageal reflux disease: Code(s): K21.9 - Gastro-esophageal reflux disease without esophagitis Status: Acute Assessment and Plan: Continue pantoprazole. (7) Prediabetes: Code(s): R73.03 - Prediabetes Status: Acute Assessment and Plan: Random glucose on arrival was 230. Hold metformin as she received IV contrast. Initiate sliding scale insulin, Accu-Cheks, and hypoglycemic protocol. (8) Obstructive sleep apnea: Code(s): G47.33 - Obstructive sleep apnea (adult) (pediatric) Status: Acute Assessment and Plan: Patient may use CPAP from home. Subjective Date/time seen: 11/08/23 15:00 Interval history: Patient is reporting improvement in his abdominal pain and is tolerating clear liquids without issue this morning. Prior to admission he felt chills, feverish and malaise but is feeling much better now. Continue AB, advance diet as tolerated as he would like to try full liquids for lunch. GI consulted and recommends colonoscopy outpatient, and to continue current management. Dehydration improved with overnight IVF. Stool culture ordered, BC pending. Continue to monitor and plan for d/c when tolerating PO intake and labs are stable. Review of Systems Review of Systems: All systems reviewed & are unremarkable except as noted in HPI and below Exam Narrative: General: well-nourished, slightly pale gentleman sitting up in bed in no acute distress. HEENT: Normocephalic, atraumatic. PERRL, EOMI. Tacky mucous membranes. Neck: Supple. Respiratory: Lungs are clear to auscultation bilaterally. Cardiovascular: RRR with S1-S2. Gastrointestinal: Abdomen is soft and protuberant with active bowel sounds. He has mild tenderness to palpation throughout. No guarding or rebound. Skin: Warm and dry. Extremities: No cyanosis, clubbing, or edema. Radial and pedal pulses intact. Neurological: A&O x3. Cranial nerves 2-12 are grossly intact. No gross focal deficits to casual conversation. Psychiatric: Pleasant and cooperative with normal mood and affect. Judgment and insight intact. Objective Data Vital Signs Vital Signs: Vital Signs - 24 hr 11/07/23 15:24 11/07/23 16:00 11/07/23 20:31 Temperature 97.8 F 97.3 F L Pulse Rate 74 74 73 Respiratory Rate 16 20 Blood Pressure 144/80 H 129/78 Pulse Oximetry 98 95 Oxygen Delivery 11/07/23 20:00 11/07/23 20:00 11/07/23 22:12 Temperature Pulse Rate 75 Respiratory Rate Blood Pressure Pulse Oximetry Oxygen Delivery Room Air CPAP
[2023-11-08 16:57] LABS: Glucose Point of Care 95 mg/dl (65-105)
[2023-11-08 21:03] LABS: Glucose Point of Care 96 mg/dl (65-105)
[2023-11-09] VITALS (9 sets, daily range): BP systolic 113–132; BP diastolic 69–77; PULSE 56–68; RESP 16–20; TEMP 36.3–36.6; O2SAT 99–100
[2023-11-09] MEDS: metroNIDAZOLE 500 MG/ISO 100ML 500 MG/100 ML BAG 100 MG IVPB ×3 (02:04→17:00)
[2023-11-09] MEDS: ONDANSETRON INJ 4 MG/2 ML VIAL IV PUSH ×2 (03:54→23:12)
[2023-11-09 06:25] LABS: Basophils Absolute Auto 0.1 K/mm3 (0.0-0.1); Basophils Percent Auto 0.7 % (0.2-1.2); Eosinophils Absolute Auto 0.1 K/mm3 (0-0.3); Eosinophils Percent Auto 1.8 % (0-4.4); Hematocrit 36.2 % (42.0-52.0); Hemoglobin 11.6 g/dL (14.0-18.0); Immature Granulocyte Absolute 0.02 K/mm3 (0.00-0.031); Immature Granulocyte Percent A 0.3 % (0-0.5); Lymphocytes Absolute Auto 1.41 K/mm3 (0.9-3.2); Lymphocytes Percent Auto 18.5 % (18.3-44.2); Mean Corpuscular Hemoglobin 27.9 pg (26-34); Mean Platelet Volume 10.2 fl (7.4-10.4); Monocytes Absolute Auto 0.6 K/mm3 (0.1-0.6); Monocytes Percent Auto 7.9 % (2.6-8.5); Neutrophils Absolute Auto 5.4 K/mm3 (1.3-6.7); Neutrophils Percent Auto 70.8 % (45.5-73.1); Platelet Count Result 185 k/mm3 (150-375); Red Blood Count 4.16 M/mm3 (4.6-6.20); Red Cell Distribution Width 12.2 % (11.5-14.5); White Blood Count 7.6 K/mm3 (4.5-10.0)
[2023-11-09 06:34] LABS: Anion Gap 7 mmol/L (8-16); Blood Urea Nitrogen 17 mg/dL (9-20); Calcium 8.6 mg/dL (8.4-10.2); Carbon Dioxide 23 mmol/L (22-30); Chloride 110 mmol/L (98-107); Estimated CRCL calculation 81 ml/min; Estimated Glomerular Filt Rate > 60; Glucose 113 mg/dL (65-110); Potassium 3.7 mmol/L (3.4-5.0); Sodium 140 mmol/L (137-145)
[2023-11-09] MEDS: PANTOPRAZOLE 40 MG TABLET PO (08:17)
[2023-11-09] MEDS: ENOXAPARIN 40 MG/0.4 ML SYRINGE SUB-Q (08:17)
[2023-11-09] MEDS: ATORVASTATIN 40 MG TABLET PO (08:17)
[2023-11-09 08:28] LABS: Glucose Point of Care 108 mg/dl (65-105)
--- NOTE | 2023-11-09 09:33 | P.PNIM_ITS ---
Progress Note: A&P Assessment and Plan (1) Sepsis: Code(s): A41.9 - Sepsis, unspecified organism Status: Acute Assessment and Plan: 11/08/13: * Supported by leukocytosis, lactic acidosis, and acute kidney injury in the setting of enterocolitis. * Received 3 L normal saline in the ED with normalization of lactic acid level. * stool cultures ordered * BC pending 12/10/22: * White blood cell count is 7.6 today * BUN 17, creatinine 1.1 * Blood in stool cultures are still pending * Patient continues on Rocephin IV and Flagyl * Vital signs are stable and he is afebrile (2) Enterocolitis: Code(s): K52.9 - Noninfective gastroenteritis and colitis, unspecified Status: Acute Assessment and Plan: 11/08/23: * Presumably infectious. * Continue ceftriaxone and metronidazole * Stool studies ordered * tolerating liquids, advance diet as tolerated * GI following, may need colonoscopy outpatient 11/09/23: * Stool cultures are still pending * GI following * Continue antibiotics as above (3) Acute kidney injury: Code(s): N17.9 - Acute kidney failure, unspecified Status: Acute Assessment and Plan: 11/08/23: * IVF as needed, tolerating PO * Avoid nephrotoxic agents and renally dose all medications. * creatinine and GFR improved today 11/09/23: * BUN 17, creatinine 1.1 which is near his baseline of 1.0 * Tolerating p.o. (4) Dehydration: Code(s): E86.0 - Dehydration Status: Acute Assessment and Plan: 11/08/23: * Plan is as detailed above. 11/09/23: * Patient tolerating p.o. at this time ,no signs of dehydration seen. (5) Systolic dysfunction: Code(s): I51.9 - Heart disease, unspecified Status: Acute Assessment and Plan: 11/08/23: * EF was 41% on Lexiscan stress in June 2023. * Monitor volume status and daily weights while cautiously hydrating. 11/09/23: * Of note (6) Gastroesophageal reflux disease: Code(s): K21.9 - Gastro-esophageal reflux disease without esophagitis Status: Acute Assessment and Plan: 11/08/23: * Continue pantoprazole. 11/09/23: * No change to current treatment plan (7) Prediabetes: Code(s): R73.03 - Prediabetes Status: Acute Assessment and Plan: 11/08/23: * Random glucose on arrival was 230. * Hold metformin as she received IV contrast. * Initiate sliding scale insulin, Accu-Cheks, and hypoglycemic protocol. 11/09/23: * Blood sugars ranging 108-113 * Continue to hold metformin * Continue with sliding scale insulin and Accu-Checks (8) Obstructive sleep apnea: Code(s): G47.33 - Obstructive sleep apnea (adult) (pediatric) Status: Acute Assessment and Plan: 11/08/23: * Patient may use CPAP from home. 11/09/23: * Continue home CPAP, no change to current treatment plan Time Spent With Patient Time with patient: Greater than 35 minutes Subjective Date/time seen: 11/09/23 09:33 Interval history: This is a 53 year old male who presents to the hospital on 11/07/23 with complaint of nausea, vomiting, and abdominal pain. Work up in the hospital included a CT of his abdomen and pelvis which shown greater than normal number of fluid-filled, nondistended loops of large and small bowel, likely enterocolitis, diffuse hepatic steatosis. UA shown 3+ protein and trace ketones. Blood and stool cultures were obta
--- NOTE | 2023-11-09 09:33 | PM.IMPN ---
Progress Note: A&P Assessment and Plan (1) Sepsis: Code(s): A41.9 - Sepsis, unspecified organism Status: Acute Assessment and Plan: 11/08/13: Supported by leukocytosis, lactic acidosis, and acute kidney injury in the setting of enterocolitis. Received 3 L normal saline in the ED with normalization of lactic acid level. stool cultures ordered BC pending 12/10/22: White blood cell count is 7.6 today BUN 17, creatinine 1.1 Blood in stool cultures are still pending Patient continues on Rocephin IV and Flagyl Vital signs are stable and he is afebrile (2) Enterocolitis: Code(s): K52.9 - Noninfective gastroenteritis and colitis, unspecified Status: Acute Assessment and Plan: 11/08/23: Presumably infectious. Continue ceftriaxone and metronidazole Stool studies ordered tolerating liquids, advance diet as tolerated GI following, may need colonoscopy outpatient 11/09/23: Stool cultures are still pending GI following Continue antibiotics as above (3) Acute kidney injury: Code(s): N17.9 - Acute kidney failure, unspecified Status: Acute Assessment and Plan: 11/08/23: IVF as needed, tolerating PO Avoid nephrotoxic agents and renally dose all medications. creatinine and GFR improved today 11/09/23: BUN 17, creatinine 1.1 which is near his baseline of 1.0 Tolerating p.o. (4) Dehydration: Code(s): E86.0 - Dehydration Status: Acute Assessment and Plan: 11/08/23: Plan is as detailed above. 11/09/23: Patient tolerating p.o. at this time ,no signs of dehydration seen. (5) Systolic dysfunction: Code(s): I51.9 - Heart disease, unspecified Status: Acute Assessment and Plan: 11/08/23: EF was 41% on Lexiscan stress in June 2023. Monitor volume status and daily weights while cautiously hydrating. 11/09/23: Of note (6) Gastroesophageal reflux disease: Code(s): K21.9 - Gastro-esophageal reflux disease without esophagitis Status: Acute Assessment and Plan: 11/08/23: Continue pantoprazole. 11/09/23: No change to current treatment plan (7) Prediabetes: Code(s): R73.03 - Prediabetes Status: Acute Assessment and Plan: 11/08/23: Random glucose on arrival was 230. Hold metformin as she received IV contrast. Initiate sliding scale insulin, Accu-Cheks, and hypoglycemic protocol. 11/09/23: Blood sugars ranging 108-113 Continue to hold metformin Continue with sliding scale insulin and Accu-Checks (8) Obstructive sleep apnea: Code(s): G47.33 - Obstructive sleep apnea (adult) (pediatric) Status: Acute Assessment and Plan: 11/08/23: Patient may use CPAP from home. 11/09/23: Continue home CPAP, no change to current treatment plan Time Spent With Patient Time with patient: Greater than 35 minutes Subjective Date/time seen: 11/09/23 09:33 Interval history: This is a 53 year old male who presents to the hospital on 11/07/23 with complaint of nausea, vomiting, and abdominal pain. Work up in the hospital included a CT of his abdomen and pelvis which shown greater than normal number of fluid-filled, nondistended loops of large and small bowel, likely enterocolitis, diffuse hepatic steatosis. UA shown 3+ protein and trace ketones. Blood and stool cultures were obtained. Patient started on ceftriaxone. GI was consulted. On examination today patient is alert oriented x4, lying in the bed. Patient denies any nausea, vomiting, chest pain, shortness a breath. His abdomen is quite distended and he reports diarrhea. Labs today reveal WBC 7.6, Hgb 11.6, Hct 36.2, Na+ 140, K+ 3.7, Chloride 110, BUN 17, Creatinine 1.10, BG- 108-113. Blood and stool cultures are pending. He will continue on Rocephin at this time. Review of Systems Review of Systems: Twelve systems were reviewed and are negative except for as per
[2023-11-09 12:31] LABS: Glucose Point of Care 102 mg/dl (65-105)
--- NOTE | 2023-11-09 15:23 | WPDGIPROGNO ---
Progress Note: A&P Assessment and Plan (1) Enterocolitis: Code(s): K52.9 - Noninfective gastroenteritis and colitis, unspecified Status: Acute Assessment and Plan: normalization of leukocytosis and also renal failure on abx, cultures no growth thus far slowly better consider colonoscopy in about 2 months (had colonoscopy 2 years ago) (2) Sepsis: Code(s): A41.9 - Sepsis, unspecified organism Status: Acute Assessment and Plan: improved (3) Acute kidney injury: Code(s): N17.9 - Acute kidney failure, unspecified Status: Acute Assessment and Plan: resolved with medical treatment (4) Dehydration: Code(s): E86.0 - Dehydration Status: Acute Subjective Date/time seen: 11/09/23 15:23 Interval history: still with diarrhea and some nausea but eating more Review of Systems Review of Systems: All systems reviewed & are unremarkable except as noted in HPI and below Exam Const: General: comfortable and no acute distress HENMT: Face/Nose/Sinus: Normal nares present Eyes: General: appearance normal, both eyes and all related structures Neck: Neck: supple Resp: Auscultation: clear to auscultation bilaterally Cardio: Rate: regular rate Rhythm: regular rhythm GI: Inspection: distended GI Palp: Yes Soft to palpation, Yes Tenderness to palpation present (GI) (less tender, no rebound) and No Guarding due to palpation present (GI) Auscultation: normal bowel sounds Skin: General skin exam: normal color Neuro: Speech: normal speech Motor exam (neuro): 5/5 motor strength present throughout Extrem: General: normal to inspection Psych: Mental Status: mental status grossly normal Objective Data Vital Signs Vital Signs: Vital Signs - 24 hr 11/08/23 16:00 11/08/23 20:30 11/09/23 00:10 Temperature 97.4 F L Pulse Rate 74 65 Respiratory Rate 18 Blood Pressure 105/65 Pulse Oximetry 100 Oxygen Delivery CPAP 11/09/23 03:58 11/08/23 21:25 11/08/23 20:00 Temperature 97.4 F L Pulse Rate 58 L 64 Respiratory Rate 20 Blood Pressure 121/71 Pulse Oximetry 100 Oxygen Delivery Room Air 11/09/23 00:00 11/09/23 04:00 11/09/23 08:00 Temperature Pulse Rate 57 L 56 L Respiratory Rate Blood Pressure Pulse Oximetry Oxygen Delivery Room Air Intake/Output Intake/Output: Intake & Output 11/06/23 11/07/23 11/08/23 11/09/23 23:59 23:59 23:59 23:59 Intake Total 3760 2370 1110 Balance 3760 2370 1110 Meds/Results Medications: Active Medications Generic Name Dose Route Start Last Admin Trade Name Freq PRN Reason Stop Dose Admin Acetaminophen 650 mg 11/07/23 13:40 Acetaminophen 325 Mg Tablet PO Q6H PRN Mild Pain (1-3) or Fever Atorvastatin Calcium 40 mg 11/08/23 09:00 11/09/23 08:17 Atorvastatin 40 Mg Tablet PO 40 mg DAILY TYSON Administration Dextrose 12.5 gm 11/07/23 13:40 Dextrose 50% 25 Gm/50 Ml Syringe IV PUSH PRN PRN Hypoglycemia Protocol Enoxaparin Sodium 40 mg 11/08/23 09:00 11/09/23 08:17 Enoxaparin 40 Mg/0.4 Ml Syringe SUB-Q 40 mg DAILY TYSON Administration Glucagon 1 mg 11/07/23 13:40 Glucagon For Inj 1 Mg Vial IM PRN PRN Hypoglycemia Protocol Glucose 15 gm 11/07/23 13:40 Glucose Oral Gel 15 Gm Of Glucse In 37.5 Gm Tube PO PRN PRN Hypoglycemia Protocol Dextrose 1,000 mls @ 100 mls/hr 11/07/23 13:40 Dextrose 5% 1,000 Ml IVPB PRN PRN Hypoglycemia Protocol Ceftriaxone Sodium 1 gm in 50 mls @ 100 mls/hr 11/08/23 09:00 11/09/23 08:17 Rocephin 1 Gm/Ns 50 Ml IVPB 100 mls/hr Q24H TYSON Administration Metronidazole 500 mg in 100 mls @ 100 mls/hr 11/07/23 18:00 11/09/23 10:17 Flagyl 500 Mg/Iso Soln 100 Ml IVPB 100 mls/hr Q8H TYSON Administration Insulin Aspart 2 - 5 units 11/07/23 17:00 11/09/23 12:19 Insulin Aspart (*Bkc) 100 Units/Ml SUB-Q N
[2023-11-09 17:07] LABS: Glucose Point of Care 87 mg/dl (65-105)
[2023-11-09 20:05] LABS: Glucose Point of Care 111 mg/dl (65-105)
[2023-11-10] VITALS: PULSE 67
[2023-11-10] MEDS: metroNIDAZOLE 500 MG/ISO 100ML 500 MG/100 ML BAG 100 MG IVPB ×2 (02:05→09:32)
[2023-11-10 04:00] VITALS: PULSE 55
[2023-11-10 06:00] VITALS: BP 127/73; PULSE 69; RESP 18; TEMP 36.3; O2SAT 98
[2023-11-10 06:21] LABS: Basophils Percent Auto 0.4 % (0.2-1.2); Eosinophils Absolute Auto 0.2 K/mm3 (0-0.3); Eosinophils Percent Auto 2.7 % (0-4.4); Hematocrit 34.9 % (42.0-52.0); Hemoglobin 11.4 g/dL (14.0-18.0); Immature Granulocyte Absolute 0.02 K/mm3 (0.00-0.031); Immature Granulocyte Percent A 0.3 % (0-0.5); Lymphocytes Absolute Auto 1.05 K/mm3 (0.9-3.2); Lymphocytes Percent Auto 13.3 % (18.3-44.2); Mean Corpuscular HGB Conc 32.7 g/dl (32-36); Mean Corpuscular Hemoglobin 27.9 pg (26-34); Mean Corpuscular Volume 85.3 fl (80-100); Monocytes Absolute Auto 0.6 K/mm3 (0.1-0.6); Monocytes Percent Auto 7.6 % (2.6-8.5); Neutrophils Percent Auto 75.7 % (45.5-73.1); Platelet Count Result 183 k/mm3 (150-375); Red Blood Count 4.09 M/mm3 (4.6-6.20); White Blood Count 7.9 K/mm3 (4.5-10.0)
[2023-11-10 06:33] LABS: Alanine Aminotransferase 42 U/L (6-50); Albumin Level 3.6 g/dL (3.5-5.1); Alkaline Phosphatase 93 U/L (38-126); Anion Gap 8 mmol/L (8-16); Aspartate Amino Transferase 28 U/L (17-59); Bilirubin,Total 0.5 mg/dL (0.2-1.3); Blood Urea Nitrogen 14 mg/dL (9-20); Calcium 8.6 mg/dL (8.4-10.2); Carbon Dioxide 23 mmol/L (22-30); Chloride 107 mmol/L (98-107); Estimated CRCL calculation 81 ml/min; Estimated Glomerular Filt Rate > 60; Glucose 115 mg/dL (65-110); Potassium 3.2 mmol/L (3.4-5.0); Sodium 138 mmol/L (137-145)
--- NOTE | 2023-11-10 08:27 | P.PNIM_ITS ---
Progress Note: A&P Assessment and Plan (1) Sepsis: Code(s): A41.9 - Sepsis, unspecified organism Status: Acute Assessment and Plan: 11/08/13: * Supported by leukocytosis, lactic acidosis, and acute kidney injury in the setting of enterocolitis. * Received 3 L normal saline in the ED with normalization of lactic acid level. * stool cultures ordered * BC pending 12/10/22: * White blood cell count is 7.6 today * BUN 17, creatinine 1.1 * Blood in stool cultures are still pending * Patient continues on Rocephin IV and Flagyl * Vital signs are stable and he is afebrile 12/11/22: * blood culture showing no growth on preliminary * stool culture negative for E coli, Salmonella is pending he is positive for Campylobacter EIA. * Rocephin and Flagyl discontinued, patient started on oral Azithromycin for 3 days. * patient remains afebrile, vital signs are stable, he is on room air (2) Enterocolitis: Code(s): K52.9 - Noninfective gastroenteritis and colitis, unspecified Status: Acute Assessment and Plan: 11/08/23: * Presumably infectious. * Continue ceftriaxone and metronidazole * Stool studies ordered * tolerating liquids, advance diet as tolerated * GI following, may need colonoscopy outpatient 11/09/23: * Stool cultures are still pending * GI following * Continue antibiotics as above 11/10/23: * see above (3) Dehydration: Code(s): E86.0 - Dehydration Status: Acute Assessment and Plan: 11/08/23: * Plan is as detailed above. 11/09/23: * Patient tolerating p.o. at this time ,no signs of dehydration seen. 11/10/23: * discontinue IV fluid * no change to current treatment plan (4) Systolic dysfunction: Code(s): I51.9 - Heart disease, unspecified Status: Acute Assessment and Plan: 11/08/23: * EF was 41% on Lexiscan stress in June 2023. * Monitor volume status and daily weights while cautiously hydrating. 11/09/23: * Of note (5) Gastroesophageal reflux disease: Code(s): K21.9 - Gastro-esophageal reflux disease without esophagitis Status: Acute Assessment and Plan: 11/08/23: * Continue pantoprazole. 11/09/23: * No change to current treatment plan (6) Prediabetes: Code(s): R73.03 - Prediabetes Status: Acute Assessment and Plan: 11/08/23: * Random glucose on arrival was 230. * Hold metformin as she received IV contrast. * Initiate sliding scale insulin, Accu-Cheks, and hypoglycemic protocol. 11/09/23: * Blood sugars ranging 108-113 * Continue to hold metformin * Continue with sliding scale insulin and Accu-Checks 11/10/23: * blood glucose ranging 94-115 * no change to current treatment plan (7) Obstructive sleep apnea: Code(s): G47.33 - Obstructive sleep apnea (adult) (pediatric) Status: Acute Assessment and Plan: 11/08/23: * Patient may use CPAP from home. 11/09/23: * Continue home CPAP, no change to current treatment plan 11/10/23: * no change to current treatment plan Time Spent With Patient Time with patient: 25 - 35 minutes Subjective Date/time seen: 11/10/23 08:27 Interval history: 11/09/23: This is a 53 year old male who presents to the hospital on 11/07/23 with complaint of nausea, vomiting, and abdominal pain. Work up in the hospital included a CT of his abdomen and pelvis which rui
--- NOTE | 2023-11-10 08:27 | PM.IMPN ---
Progress Note: A&P Assessment and Plan (1) Sepsis: Code(s): A41.9 - Sepsis, unspecified organism Status: Acute Assessment and Plan: 11/08/13: Supported by leukocytosis, lactic acidosis, and acute kidney injury in the setting of enterocolitis. Received 3 L normal saline in the ED with normalization of lactic acid level. stool cultures ordered BC pending 12/10/22: White blood cell count is 7.6 today BUN 17, creatinine 1.1 Blood in stool cultures are still pending Patient continues on Rocephin IV and Flagyl Vital signs are stable and he is afebrile 12/11/22: blood culture showing no growth on preliminary stool culture negative for E coli, Salmonella is pending he is positive for Campylobacter EIA. Rocephin and Flagyl discontinued, patient started on oral Azithromycin for 3 days. patient remains afebrile, vital signs are stable, he is on room air (2) Enterocolitis: Code(s): K52.9 - Noninfective gastroenteritis and colitis, unspecified Status: Acute Assessment and Plan: 11/08/23: Presumably infectious. Continue ceftriaxone and metronidazole Stool studies ordered tolerating liquids, advance diet as tolerated GI following, may need colonoscopy outpatient 11/09/23: Stool cultures are still pending GI following Continue antibiotics as above 11/10/23: see above (3) Dehydration: Code(s): E86.0 - Dehydration Status: Acute Assessment and Plan: 11/08/23: Plan is as detailed above. 11/09/23: Patient tolerating p.o. at this time ,no signs of dehydration seen. 11/10/23: discontinue IV fluid no change to current treatment plan (4) Systolic dysfunction: Code(s): I51.9 - Heart disease, unspecified Status: Acute Assessment and Plan: 11/08/23: EF was 41% on Lexiscan stress in June 2023. Monitor volume status and daily weights while cautiously hydrating. 11/09/23: Of note (5) Gastroesophageal reflux disease: Code(s): K21.9 - Gastro-esophageal reflux disease without esophagitis Status: Acute Assessment and Plan: 11/08/23: Continue pantoprazole. 11/09/23: No change to current treatment plan (6) Prediabetes: Code(s): R73.03 - Prediabetes Status: Acute Assessment and Plan: 11/08/23: Random glucose on arrival was 230. Hold metformin as she received IV contrast. Initiate sliding scale insulin, Accu-Cheks, and hypoglycemic protocol. 11/09/23: Blood sugars ranging 108-113 Continue to hold metformin Continue with sliding scale insulin and Accu-Checks 11/10/23: blood glucose ranging 94-115 no change to current treatment plan (7) Obstructive sleep apnea: Code(s): G47.33 - Obstructive sleep apnea (adult) (pediatric) Status: Acute Assessment and Plan: 11/08/23: Patient may use CPAP from home. 11/09/23: Continue home CPAP, no change to current treatment plan 11/10/23: no change to current treatment plan Time Spent With Patient Time with patient: 25 - 35 minutes Subjective Date/time seen: 11/10/23 08:27 Interval history: 11/09/23: This is a 53 year old male who presents to the hospital on 11/07/23 with complaint of nausea, vomiting, and abdominal pain. Work up in the hospital included a CT of his abdomen and pelvis which shown greater than normal number of fluid-filled, nondistended loops of large and small bowel, likely enterocolitis, diffuse hepatic steatosis. UA shown 3+ protein and trace ketones.? Blood and stool cultures were obtained. Patient started on ceftriaxone. GI was consulted. On examination today patient is alert oriented x4, lying in the bed.? Patient denies any nausea, vomiting, chest pain, shortness a breath.? His abdomen is quite distended and he reports diarrhea.? Labs today reveal WBC 7.6, Hgb 11.6, Hct 36.2, Na+ 140, K+ 3.7, Chloride 110, BUN 17, Creatinine 1.10, BG- 108-113. Blood
[2023-11-10 08:43] LABS: Glucose Point of Care 106 mg/dl (65-105)
[2023-11-10] MEDS: PANTOPRAZOLE 40 MG TABLET PO (08:52)
[2023-11-10] MEDS: ATORVASTATIN 40 MG TABLET PO (08:52)
[2023-11-10] MEDS: ENOXAPARIN 40 MG/0.4 ML SYRINGE SUB-Q (08:53)
[2023-11-10 11:50] LABS: Glucose Point of Care 94 mg/dl (65-105)
[2023-11-10] MEDS: AZITHROMYCIN 250 MG TABLET 500 MG PO (12:32)
[2023-11-10] MEDS: POTASSIUM CHLORIDE 20 MEQ ER TABLET 40 MEQ PO (13:54)
[2023-11-10 14:13] VITALS: BP 123/63; PULSE 75; RESP 16; TEMP 36.3; O2SAT 99
[2023-11-10] MEDS: ONDANSETRON INJ 4 MG/2 ML VIAL IV PUSH (14:19)
--- NOTE | 2023-11-10 16:12 | WPDGIPROGNO ---
Progress Note: A&P Assessment and Plan (1) Enterocolitis: Code(s): K52.9 - Noninfective gastroenteritis and colitis, unspecified Status: Acute Assessment and Plan: normalization of leukocytosis and also renal failure better, probably tomorrow he can go home with oral abx, pending final stool sample consider colonoscopy in about 2 months (had colonoscopy 2 years ago) (2) Sepsis: Code(s): A41.9 - Sepsis, unspecified organism Status: Acute Assessment and Plan: resolved (3) Acute kidney injury: Code(s): N17.9 - Acute kidney failure, unspecified Status: Resolved Assessment and Plan: resolved with medical treatment (4) Dehydration: Code(s): E86.0 - Dehydration Status: Acute Subjective Date/time seen: 11/10/23 16:12 Interval history: eating more, still nausea but improved had formed stool Review of Systems Review of Systems: All systems reviewed & are unremarkable except as noted in HPI and below Exam Const: General: comfortable and no acute distress HENMT: Face/Nose/Sinus: Normal nares present Eyes: General: appearance normal, both eyes and all related structures Neck: Neck: no JVD Resp: Auscultation: clear to auscultation bilaterally Cardio: Rate: regular rate Rhythm: regular rhythm GI: Inspection: non-distended GI Palp: Yes Soft to palpation Skin: General skin exam: normal color Neuro: General: gait normal Speech: normal speech Extrem: General: normal to inspection Psych: Mental Status: mental status grossly normal Objective Data Vital Signs Vital Signs: Vital Signs - 24 hr 11/09/23 20:00 11/09/23 21:45 11/09/23 20:00 Temperature 97.8 F Pulse Rate 64 64 Respiratory Rate 18 Blood Pressure 113/69 Pulse Oximetry 99 Oxygen Delivery Room Air 11/10/23 00:00 11/10/23 04:00 11/10/23 06:00 Temperature 97.3 F L Pulse Rate 67 55 L 69 Respiratory Rate 18 Blood Pressure 127/73 Pulse Oximetry 98 Oxygen Delivery 11/10/23 08:00 11/10/23 14:13 Temperature 97.4 F L Pulse Rate 75 Respiratory Rate 16 Blood Pressure 123/63 Pulse Oximetry 99 Oxygen Delivery Room Air Intake/Output Intake/Output: Intake & Output 12/11/23 12/12/23 12/13/23 12/14/23 23:59 23:59 23:59 23:59 Intake Total 3760 2370 2250 1130 Balance 3760 2370 2250 1130 Meds/Results Medications: Active Medications Generic Name Dose Route Start Last Admin Trade Name Freq PRN Reason Stop Dose Admin Acetaminophen 650 mg 11/07/23 13:40 Acetaminophen 325 Mg Tablet PO Q6H PRN Mild Pain (1-3) or Fever Atorvastatin Calcium 40 mg 11/08/23 09:00 11/10/23 08:52 Atorvastatin 40 Mg Tablet PO 40 mg DAILY TYSON Administration Azithromycin 500 mg 11/10/23 12:00 11/10/23 12:32 Azithromycin 250 Mg Tablet PO 11/12/23 09:01 500 mg DAILY TYSON Administration Dextrose 12.5 gm 11/07/23 13:40 Dextrose 50% 25 Gm/50 Ml Syringe IV PUSH PRN PRN Hypoglycemia Protocol Enoxaparin Sodium 40 mg 11/08/23 09:00 11/10/23 08:53 Enoxaparin 40 Mg/0.4 Ml Syringe SUB-Q 40 mg DAILY TYSON Administration Glucagon 1 mg 11/07/23 13:40 Glucagon For Inj 1 Mg Vial IM PRN PRN Hypoglycemia Protocol Glucose 15 gm 11/07/23 13:40 Glucose Oral Gel 15 Gm Of Glucse In 37.5 Gm Tube PO PRN PRN Hypoglycemia Protocol Dextrose 1,000 mls @ 100 mls/hr 11/07/23 13:40 Dextrose 5% 1,000 Ml IVPB PRN PRN Hypoglycemia Protocol Insulin Aspart 2 - 5 units 11/07/23 17:00 11/10/23 12:01 Insulin Aspart (*Bkc) 100 Units/Ml SUB-Q Not Given TIDWM TYSON Protocol Insulin Aspart 1 - 2 units 11/07/23 21:00 11/09/23 21:05 Insulin Aspart (*Bkc) 100 Units/Ml SUB-Q Not Given HS TYSON Protocol Ondansetron HCl 4 mg 11/07/23 13:41 11/10/23 14:19 Ondansetron Inj 4 Mg/2 Ml Vial IV PUSH 4 mg Q6H PRN Administration Naus
[2023-11-10 17:12] LABS: Glucose Point of Care 87 mg/dl (65-105)
[2023-11-10 20:27] VITALS: BP 127/75; PULSE 64; RESP 18; TEMP 36.2; O2SAT 98
[2023-11-10] MEDS: MELATONIN 5 MG TABLET PO (20:27)
[2023-11-11 04:00] VITALS: BP 115/61; PULSE 68; RESP 20; TEMP 36; O2SAT 100
[2023-11-11 04:22] LABS: Glucose Point of Care 113 mg/dl (65-105)
[2023-11-11 05:42] LABS: Basophils Percent Auto 0.4 % (0.2-1.2); Eosinophils Absolute Auto 0.2 K/mm3 (0-0.3); Eosinophils Percent Auto 2.1 % (0-4.4); Hematocrit 34.6 % (42.0-52.0); Hemoglobin 11.2 g/dL (14.0-18.0); Immature Granulocyte Absolute 0.02 K/mm3 (0.00-0.031); Immature Granulocyte Percent A 0.3 % (0-0.5); Lymphocytes Absolute Auto 1.09 K/mm3 (0.9-3.2); Mean Corpuscular HGB Conc 32.4 g/dl (32-36); Mean Corpuscular Hemoglobin 27.6 pg (26-34); Mean Corpuscular Volume 85.2 fl (80-100); Mean Platelet Volume 9.9 fl (7.4-10.4); Monocytes Absolute Auto 0.5 K/mm3 (0.1-0.6); Monocytes Percent Auto 7.3 % (2.6-8.5); Neutrophils Absolute Auto 5.4 K/mm3 (1.3-6.7); Neutrophils Percent Auto 74.9 % (45.5-73.1); Platelet Count Result 167 k/mm3 (150-375); Red Blood Count 4.06 M/mm3 (4.6-6.20); Red Cell Distribution Width 11.9 % (11.5-14.5); White Blood Count 7.3 K/mm3 (4.5-10.0)
[2023-11-11 05:58] LABS: Alanine Aminotransferase 65 U/L (6-50); Albumin Level 3.6 g/dL (3.5-5.1); Alkaline Phosphatase 93 U/L (38-126); Anion Gap 6 mmol/L (8-16); Aspartate Amino Transferase 65 U/L (17-59); Bilirubin,Total 0.5 mg/dL (0.2-1.3); Blood Urea Nitrogen 12 mg/dL (9-20); Calcium 8.6 mg/dL (8.4-10.2); Carbon Dioxide 27 mmol/L (22-30); Chloride 105 mmol/L (98-107); Estimated CRCL calculation 81 ml/min; Estimated Glomerular Filt Rate > 60; Glucose 116 mg/dL (65-110); Potassium 3.4 mmol/L (3.4-5.0); Sodium 138 mmol/L (137-145)
[2023-11-11 08:25] LABS: Glucose Point of Care 119 mg/dl (65-105)
[2023-11-11] MEDS: ATORVASTATIN 40 MG TABLET PO (08:58)
[2023-11-11] MEDS: PANTOPRAZOLE 40 MG TABLET PO (08:58)
[2023-11-11] MEDS: ENOXAPARIN 40 MG/0.4 ML SYRINGE SUB-Q (08:58)
--- NOTE | 2023-11-11 14:47 | PM.DS ---
DS: Admitting Diagnosis Discharge Date 11/11/23 Admitting Diagnosis sepsis enterocolitis acute kidney injury dehydration systolic dysfunction GERD pre diabetes obstructive sleep DS: Discharge Diagnosis Discharge Diagnosis (1) Sepsis: Code(s): A41.9 - Sepsis, unspecified organism Status: Acute (2) Enterocolitis: Code(s): K52.9 - Noninfective gastroenteritis and colitis, unspecified Status: Acute (3) Dehydration: Code(s): E86.0 - Dehydration Status: Acute (4) Systolic dysfunction: Code(s): I51.9 - Heart disease, unspecified Status: Acute (5) Gastroesophageal reflux disease: Code(s): K21.9 - Gastro-esophageal reflux disease without esophagitis Status: Acute (6) Prediabetes: Code(s): R73.03 - Prediabetes Status: Acute (7) Obstructive sleep apnea: Code(s): G47.33 - Obstructive sleep apnea (adult) (pediatric) Status: Acute DS: Summary Hospital Course Reason for hospitalization: sepsis enterocolitis acute kidney injury dehydration Hospital Course: This is a 53 year old male who presents to the hospital on 11/07/23 with complaint of nausea, vomiting, and abdominal pain. Work up in the hospital included a CT of his abdomen and pelvis which shown greater than normal number of fluid-filled, nondistended loops of large and small bowel, likely enterocolitis, diffuse hepatic steatosis. UA shown 3+ protein and trace ketones.? Blood and stool cultures were obtained. Patient started on ceftriaxone. GI was consulted. Blood cultures showing no growth and stool cultures are negative for e. coli, salmonella, and campylobacter antigen. Rocephin was discontinued. On examination today patient is alert and oriented x3, sitting on the couch in his room. He denies any nausea, vomiting, diarrhea, abdominal pain, fever, chills, shortness of breath, or chest pain. Labs today reveal WBC 7.3, Hgb 11.2, Hct 34.6, CMP essentially normal, BG ranging 113-119. Patient is stable for discharge at this time. I sent him home with a prescription for Zofran just in case he has nausea. No antibiotics are warranted at this time considering his negative cultures. He needs to follow up with his PCP in 1 week and follow up with gastroenterology in 2 weeks as they discussed an outpatient colonoscopy. final diagnosis: sepsis due to enterocolitis, acute kidney injury, dehydration Status at Discharge Cognitive/behavioral status at discharge: alert oriented x3 Functional status at discharge: independent ambulation Overall status at discharge: patient is progressing back to baseline Time Spent with Patient Time attestation: Total time spent providing and/or coordinating discharge services: Time spent: Greater than 30 minutes Exam Narrative: General: In no acute distress, well nourished Head: atraumatic, no encephalopathy Eyes: EOMI, PERRLA, sclera clear ENT: moist mucous membranes, nasal passages clear Neck: supple, no JVD, no adenopathy, trachea midline Cardiac: Normal S1 and S2. No murmur, gallops or friction rubs, peripheral pulses intact. Respiratory: Lungs clear to auscultation, no adventitious lung sounds Gastrointestinal: mildly firm, distended, non-tender, normoactive bowel sounds. BM today more formed. he denies nausea today : voiding without difficulty. Extremities: moves all extremities well, no edema, good ROM, strength 5/5 Skin: clean, dry, intact. No wounds or lesions. Neuro: Alert and oriented x4, cranial nerves intact, no neuro deficits. Psych: normal mood, normal affect, interactive DS: Data Data Completed and Pending Completed studies during hospitalization: abdomen pelvis CT Pending studies at discharge: blood culture showing no growth today on preliminary awaiting final results Labs on day of discharge: Labs from last 24 hours 11/11/23 11/11/23 11/10/23 08:01 05:28 20:27 WBC 7.3 RBC 4.06 L Hgb 11.2 L Hct 34.
== END 2023-11-11 11:40 | disposition home or self-care (01) | DRG 872 ==
LOC: ANHED 09:53 → ANH2MED 12:12
PROVIDERS: Nurse Practitioner; Physician Assistant; Admitting Provider Family Medicine; Emergency Provider Physician Assistant; PCP Family Medicine; Visit Provider Nurse Practitioner Acute Care
DX: A41.9 Sepsis, unspecified organism (principal); N17.9 Acute kidney failure, unspecified; K52.9 Noninfective gastroenteritis and colitis, unspecified; E86.0 Dehydration; E78.2 Mixed hyperlipidemia; E55.9 Vitamin D deficiency, unspecified; G47.33 Obstructive sleep apnea (adult) (pediatric); I51.9 Heart disease, unspecified; K21.9 Gastro-esophageal reflux disease without esophagitis; K76.0 Fatty (change of) liver, not elsewhere classified; R73.03 Prediabetes; M10.9 Gout, unspecified; Z79.84 Long term (current) use of oral hypoglycemic drugs; Z90.49 Acquired absence of other specified parts of digestive tract; Z87.442 Personal history of urinary calculi
CPT/HCPCS: 36415; 74177; 80048; 80053; 81001; 82948; 83605; 83690; 83735; 85025; 85027; 87040; 87045; 87427; 87449; 96361; 96374; 96375; 99285; A9270; C9113; J0696; J1650; J1836; J2270; J2405; J7030; J7120; Q9967

== ENCOUNTER 2024-01-11 10:23 | Outpatient (CLI) | payer BC, SELFPAY ==
--- NOTE | ~2024-01-11 | XR_ITS ---
Clinical Indication: Cough PA and lateral views of the chest: Comparison: 02/05/2022 Findings: The lungs are clear, without evidence of focal consolidation or pleural effusion. Cardiome diastinal silhouette is within normal limits. Bones and soft tissues are unremarkable. Impression: Normal chest. Reviewed, dictated and finalized at location . [employer] Impression: Normal chest.
== END 2024-01-11 10:24 | disposition home or self-care (01) ==
PROVIDERS: PCP Family Medicine; Visit Provider Family Medicine
DX: R05.9 Cough, unspecified (principal)
CPT/HCPCS: 71046

== ENCOUNTER 2024-01-25 01:46 | Day surgery (SDC) | payer BC, SELFPAY ==
[2023-11-25 08:55] VITALS: BMI 30.7
--- NOTE | 2023-12-19 09:41 | SUR.PREOP ---
Patient called regarding upcoming procedure. Reviewed preop instructions, new appointment times, and procedure prep.
--- NOTE | 2024-01-23 11:17 | PC.NURSE ---
Patient called regarding upcoming procedure. Reviewed preop instructions, appointment times, and procedure prep.
[2024-01-25 09:24] VITALS: BP 122/87; PULSE 77; RESP 18; TEMP 36.1; O2SAT 98; BMI 30.4
[2024-01-25] MEDS: LACTATED RINGERS 1,000 ML 150 ML IV CONT (09:41)
--- NOTE | 2024-01-25 09:49 | WPDANESEPPF ---
Anes - Initial Pre Proc Eval Procedure: Operation Date: 01/25/24 10:30 Proposed Procedures p Colonoscopy - Blayne Campa MD Date/Time: 01/25/24 09:49 Surgeon: Blayne Campa MD Pre Op Diagnosis: Noninfective gastroenteritis and colitis Patient Data Age: 53 Gender: M Height: 1.78 m Weight: 96.3 kg Last Vital Signs Temp 36.1 C L 01/25/24 09:24 Pulse 77 01/25/24 09:24 Resp 18 01/25/24 09:24 BP 122/87 01/25/24 09:24 Pulse Ox 98 01/25/24 09:24 O2 Del Method Room Air 01/25/24 09:24 Allergies Allergy/AdvReac Type Severity Reaction Status Date / Time No Known Drug Allergies Allergy Unknown none Verified 01/25/24 09:30 Home Medications Medication Instructions Recorded Confirmed Type esomeprazole magnesium 40 mg 40 mg PO DAILY 11/07/23 01/25/24 History capsule,delayed release metformin 500 mg tablet,extended 500 mg PO BID PRN high blood sugar 11/07/23 01/25/24 History release 24 hr atorvastatin 40 mg tablet 40 mg PO DAILY #90 tabs 01/18/24 01/25/24 Rx sildenafil 25 mg tablet See Rx Instructions .Route 01/23/24 01/25/24 Rx .COMPLEX #30 tabs Patient hx anesthesia problems: none Family hx anesthesia problems: none Results Review: All pre-operative results and documents have been reviewed as part of the pre-operative evaluation. REPLACED BY [facility] Past Medical History Medical History Gastroesophageal reflux disease Gout Kidney stones Mixed hyperlipidemia Obstructive sleep apnea Prediabetes Systolic dysfunction Vitamin D deficiency, unspecified Surgical History Surgical History History of laparoscopic cholecystectomy (02/2022) History of umbilical hernia repair (2015) Family History Family History Mother Hypertension Skin cancer Father Hypertension Leukemia Sibling Diabetes mellitus Social History Social History Social History: Surrogate medical decision maker: Rebekah Ania, spouse. Code status: Full code. 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 Spiritual care concerns: No Anes - Eval Final PreProcedure Day of Procedure 01/25/24 09:49 Patient weight: obese Heart: regular rate and rhythm Lungs: clear to auscultation Airway: Mallampati scale class II Neurological: alert and oriented Last oral intake: >/= 8 hours ASA classification: III Emergent: no Anesthetic plan: proceed Anesthesia type and monitoring: general GIVS and standard monitoring Results Review: All pre-operative results and documents have been reviewed as part of the pre-operative evaluation. Informed Consent: The patient's anesthetic plan and its attendant risks and benefits were discussed with the patient/family/POA. Questions were solicited and answers provided to the satisfaction of the patient/family/POA.
[2024-01-25] MEDS: ONDANSETRON INJ 4 MG/2 ML VIAL IV PUSH (09:51)
[2024-01-25 09:53] LABS: Glucose Point of Care 155 mg/dl (65-105)
--- NOTE | 2024-01-25 10:28 | PM.HPGS ---
History of Present Illness History of Present Illness Consent: Risks, benefits, and alternatives have been discussed and questions answered. Patient agrees to proceed with procedure. Chief complaint: Noninfective gastroenteritis and colitis Narrative: Sonny Jorge is a 53 year old male with previous enterocolitis that required hospitalization 10/2023 now back to his baseline, last colonoscopy over 2 years ago Review of Systems Constitutional: Constitutional: Denies headache(s) and Denies weakness Eyes: Eyes: Denies blurry vision ENT: Reports Normal hearing present, Denies headache(s) and Denies neck pain Cardiovascular: Cardiovascular: Denies chest pain and Denies dyspnea Respiratory: Respiratory: Denies dyspnea Gastrointestinal: Gastrointestinal: Reports no additional gastrointestinal complaints Genitourinary: Genitourinary: Denies dysuria Musculoskeletal: Musculoskeletal: Denies neck pain Integumentary/Breasts: Skin/Breast: Denies dry skin Neurologic: Reports Normal hearing present, Denies headache(s) and Denies weakness Psychiatric: Psychiatric: Denies anxiety Endocrine: Endocrine: Denies change in body appearance Hematologic/Lymphatic: Hematologic/Lymphatic: Denies easy bleeding Allergic/Immunologic: Allergic/Immunologic: Denies urticaria PMFSH Past Medical History Medical History Gastroesophageal reflux disease Gout Kidney stones Mixed hyperlipidemia Obstructive sleep apnea Prediabetes Systolic dysfunction Vitamin D deficiency, unspecified Surgical History Surgical History History of laparoscopic cholecystectomy (02/2022) History of umbilical hernia repair (2016) Family History Family History Mother Hypertension Skin cancer Father Hypertension Leukemia Sibling Diabetes mellitus Social History Social History Social History: Surrogate medical decision maker: Rebekah Jorge, spouse. Code status: Full code. 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 Spiritual care concerns: No Meds Home Medications and Allergies Home Medications Medication Instructions Recorded Confirmed Type esomeprazole magnesium 40 mg 40 mg PO DAILY 11/07/23 01/25/24 History capsule,delayed release metformin 500 mg tablet,extended 500 mg PO BID PRN high blood sugar 11/07/23 01/25/24 History release 24 hr atorvastatin 40 mg tablet 40 mg PO DAILY #90 tabs 01/18/24 01/25/24 Rx sildenafil 25 mg tablet See Rx Instructions .Route 01/23/24 01/25/24 Rx .COMPLEX #30 tabs Allergies Allergy/AdvReac Type Severity Reaction Status Date / Time No Known Drug Allergies Allergy Unknown none Verified 01/25/24 09:30 Vital Signs Vital Signs - 24 hr 01/25/24 09:24 Temperature 97.0 F L Pulse Rate 77 Respiratory Rate 18 Blood Pressure 122/87 Pulse Oximetry 98 Oxygen Delivery Room Air Exam Const: General: comfortable and no acute distress HENMT: Face/Nose/Sinus: Normal nares present Eyes: General: appearance normal, both eyes and all related structures Neck: Neck: no JVD Resp: Auscultation: clear to auscultation
[2024-01-25 10:48] VITALS: BP 98/64; PULSE 68; RESP 22; O2SAT 97
[2024-01-25 10:58] VITALS: BP 110/74; PULSE 61; RESP 20; O2SAT 98
[2024-01-25 11:08] VITALS: BP 125/78; PULSE 62; RESP 21; O2SAT 98
== END 2024-01-25 11:25 | disposition home or self-care (01) ==
PROVIDERS: PCP Family Medicine; Visit Provider Internal Medicine Gastroenterology
PROC: 0DJD8ZZ Inspection of Lower Intestinal Tract, Via Natural or Artificial Opening Endoscopic (ICD-10-PCS; CPT 45378; principal; 2024-01-25 10:30)
DX: Z09 Encounter for follow-up examination after completed treatment for conditions other than malignant neoplasm (principal); D12.5 Benign neoplasm of sigmoid colon; K57.30 Diverticulosis of large intestine without perforation or abscess without bleeding; K64.8 Other hemorrhoids; Z87.19 Personal history of other diseases of the digestive system; K21.9 Gastro-esophageal reflux disease without esophagitis; E78.5 Hyperlipidemia, unspecified; G47.33 Obstructive sleep apnea (adult) (pediatric); R73.03 Prediabetes; E55.9 Vitamin D deficiency, unspecified; I51.9 Heart disease, unspecified; Z79.84 Long term (current) use of oral hypoglycemic drugs; E66.9 Obesity, unspecified; Z68.30 Body mass index [BMI] 30.0-30.9, adult
CPT/HCPCS: 45385; 82948; 88305; J2405; J2704; J7120

== ENCOUNTER 2024-03-09 02:11 | Day surgery (SDC) | payer BC, SELFPAY ==
[2024-02-22 14:05] VITALS: BMI 31.3
[2024-03-09 12:42] VITALS: BP 140/83; PULSE 63; RESP 18; TEMP 36.2; O2SAT 97; BMI 31.3
[2024-03-09] MEDS: LACTATED RINGERS 1,000 ML 150 ML IV CONT (12:46)
--- NOTE | 2024-03-09 12:48 | WPDANESEPPF ---
Anes - Initial Pre Proc Eval Procedure: Operation Date: 03/09/24 14:00 Proposed Procedures p Esophagogastroduodenoscopy - Blayne Campa MD Date/Time: 03/09/24 12:48 Surgeon: Blayne Campa MD Pre Op Diagnosis: GERD,Velasquez's Esophagus Patient Data Age: 54 Gender: M Height: 1.78 m Weight: 99 kg Last Vital Signs Temp 36.2 C L 03/09/24 12:42 Pulse 63 03/09/24 12:42 Resp 18 03/09/24 12:42 BP 140/83 03/09/24 12:42 Pulse Ox 97 03/09/24 12:42 O2 Del Method Room Air 03/09/24 12:42 Allergies Allergy/AdvReac Type Severity Reaction Status Date / Time No Known Drug Allergies Allergy Unknown none Verified 03/09/24 12:39 Home Medications Medication Instructions Recorded Confirmed Type atorvastatin 40 mg tablet 40 mg PO DAILY #90 tabs 01/18/24 03/09/24 Rx sildenafil 25 mg tablet See Rx Instructions .Route 01/23/24 03/09/24 Rx .COMPLEX #30 tabs metformin 500 mg tablet,extended See Rx Instructions .Route 02/13/24 03/09/24 Rx release 24 hr .COMPLEX #180 tabs esomeprazole magnesium 40 mg See Rx Instructions .Route 02/21/24 03/09/24 Rx capsule,delayed release .COMPLEX #90 caps Patient hx anesthesia problems: none Family hx anesthesia problems: none Results Review: All pre-operative results and documents have been reviewed as part of the pre-operative evaluation. [facility] Past Medical History Medical History Velasquez esophagus Gastroesophageal reflux disease Gout Kidney stones Mixed hyperlipidemia Obstructive sleep apnea Prediabetes Systolic dysfunction Vitamin D deficiency, unspecified Surgical History Surgical History History of laparoscopic cholecystectomy (02/2022) History of umbilical hernia repair (2015) Family History Family History Mother Hypertension Skin cancer Father Hypertension Leukemia Sibling Diabetes mellitus Social History Social History Social History: Surrogate medical decision maker: Rebekah Jorge, spouse. Code status: Full code. 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 Spiritual care concerns: No Anes - Eval Final PreProcedure Day of Procedure 03/09/24 12:48 Patient weight: obese Heart: regular rate and rhythm Lungs: clear to auscultation Airway: Mallampati scale class II Neurological: alert and oriented Last oral intake: >/= 8 hours ASA classification: III Emergent: no Anesthetic plan: proceed Anesthesia type and monitoring: general GIVS and standard monitoring Results Review: All pre-operative results and documents have been reviewed as part of the pre-operative evaluation. Informed Consent: The patient's anesthetic plan and its attendant risks and benefits were discussed with the patient/family/POA. Questions were solicited and answers provided to the satisfaction of the patient/family/POA.
--- NOTE | 2024-03-09 13:22 | PM.HPGS ---
History of Present Illness History of Present Illness Consent: Risks, benefits, and alternatives have been discussed and questions answered. Patient agrees to proceed with procedure. Chief complaint: GERD,Reveles's Esophagus Narrative: Sonny Jorge is a 54 year old male with gerd and reveles's on nexium, last egd about 2 years ago Review of Systems Review of Systems: All systems reviewed & are unremarkable except as noted in HPI and below PMFSH Past Medical History Medical History Reveles esophagus Gastroesophageal reflux disease Gout Kidney stones Mixed hyperlipidemia Obstructive sleep apnea Prediabetes Systolic dysfunction Vitamin D deficiency, unspecified Surgical History Surgical History History of laparoscopic cholecystectomy (02/2022) History of umbilical hernia repair (2015) Family History Family History Mother Hypertension Skin cancer Father Hypertension Leukemia Sibling Diabetes mellitus Social History Social History Social History: Surrogate medical decision maker: Rebekah Jorge, spouse. Code status: Full code. 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 Spiritual care concerns: No Meds Home Medications and Allergies Home Medications Medication Instructions Recorded Confirmed Type atorvastatin 40 mg tablet 40 mg PO DAILY #90 tabs 01/18/24 03/09/24 Rx sildenafil 25 mg tablet See Rx Instructions .Route 01/23/24 03/09/24 Rx .COMPLEX #30 tabs metformin 500 mg tablet,extended See Rx Instructions .Route 02/13/24 03/09/24 Rx release 24 hr .COMPLEX #180 tabs esomeprazole magnesium 40 mg See Rx Instructions .Route 02/21/24 03/09/24 Rx capsule,delayed release .COMPLEX #90 caps Allergies Allergy/AdvReac Type Severity Reaction Status Date / Time No Known Drug Allergies Allergy Unknown none Verified 03/09/24 12:39 Vital Signs Vital Signs - 24 hr 03/09/24 12:42 Temperature 97.2 F L Pulse Rate 63 Respiratory Rate 18 Blood Pressure 140/83 Pulse Oximetry 97 Oxygen Delivery Room Air Exam Const: General: comfortable and no acute distress HENMT: Face/Nose/Sinus: Normal nares present Eyes: General: appearance normal, both eyes and all related structures Neck: Neck: no JVD Resp: Auscultation: clear to auscultation bilaterally Cardio: Rate: regular rate Rhythm: regular rhythm GI: Inspection: non-distended GI Palp: Yes Soft to palpation Skin: General skin exam: normal color Neuro: General: gait normal Speech: normal speech Extrem: General: normal to inspection Psych: Mental Status: mental status grossly normal Assessment and Plan Assessment and plan (1) 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
[2024-03-09 13:36] VITALS: BP 101/58; PULSE 63; RESP 23; O2SAT 97
[2024-03-09 13:44] LABS: Glucose Point of Care 102 mg/dl (65-105)
[2024-03-09 13:46] VITALS: BP 106/60; PULSE 62; RESP 14; O2SAT 99
[2024-03-09 13:56] VITALS: BP 116/74; PULSE 60; RESP 21; O2SAT 100
== END 2024-03-09 14:03 | disposition home or self-care (01) ==
PROVIDERS: PCP Family Medicine; Visit Provider Internal Medicine Gastroenterology
PROC: 0DJ08ZZ Inspection of Upper Intestinal Tract, Via Natural or Artificial Opening Endoscopic (ICD-10-PCS; CPT 43235; principal; 2024-03-09 14:00)
DX: K22.70 Barrett's esophagus without dysplasia (principal); K44.9 Diaphragmatic hernia without obstruction or gangrene; K21.9 Gastro-esophageal reflux disease without esophagitis; Z79.84 Long term (current) use of oral hypoglycemic drugs; E78.2 Mixed hyperlipidemia; G47.33 Obstructive sleep apnea (adult) (pediatric); R73.03 Prediabetes; E66.9 Obesity, unspecified; Z68.31 Body mass index [BMI] 31.0-31.9, adult
CPT/HCPCS: 43239; 82948; 88305; J2704; J7120

== ENCOUNTER 2024-03-30 10:56 | Outpatient (CLI) | payer BC, SELFPAY ==
[2024-03-30 11:34] LABS: Alanine Aminotransferase 37 U/L (6-50); Albumin Level 4.5 g/dL (3.5-5.1); Alkaline Phosphatase 120 U/L (38-126); Anion Gap 5 mmol/L (4-12); Aspartate Amino Transferase 23 U/L (17-59); Bilirubin,Total 0.7 mg/dL (0.2-1.3); Blood Urea Nitrogen 12 mg/dL (9-20); Calcium 9.1 mg/dL (8.4-10.2); Carbon Dioxide 29 mmol/L (22-30); Chloride 107 mmol/L (98-107); Cholesterol 139 mg/dL (0-200); Estimated Glomerular Filt Rate > 60; Glucose 122 mg/dL (65-110); HDL Direct 28 mg/dL; Potassium 3.9 mmol/L (3.4-5.0); Sodium 141 mmol/L (137-145); Triglycerides 124 mg/dL (<150)
[2024-03-30 11:45] LABS: LDL Cholesterol Direct 98 mg/dL
== END 2024-03-30 10:57 | disposition home or self-care (01) ==
LOC: ANHLAB 10:57
PROVIDERS: PCP Family Medicine; Visit Provider Internal Medicine Cardiovascular Disease
DX: E78.2 Mixed hyperlipidemia (principal)
CPT/HCPCS: 36415; 80053; 80061

== ENCOUNTER 2024-05-11 16:53 | Emergency (ER) | payer BC, SELFPAY ==
--- NOTE | 2024-05-11 16:56 | ED.EXTPRO ---
HPI - Extremity Problem General Chief complaint: Extremity Injury, Lower Stated complaint: Left Knee Pain Time Seen by Provider: 05/11/24 16:55 Source: patient Mode of arrival: ambulatory Limitations: no limitations History of Present Illness HPI Narrative: Sonny is a 54-year-old male patient presenting to the clinic today with complaints of left knee pain x1 month but has gotten worse over the last 1-2 days. He reports when he squats or tries to walk on his knee he has burning shooting pain. No known injury to the left knee. Knee is painful, warm, and mildly red. History of gout. He denies any fever, chills, body aches. No open wounds over the left knee Related Data Allergies Allergy/AdvReac Type Severity Reaction Status Date / Time No Known Drug Allergies Allergy Unknown none Verified 05/01/24 09:43 Review of Systems Review of Systems: Pertinent positives per HPI. Patient denies any fever, chills, rash, headache, visual changes, dizziness, cough, runny nose, sore throat, shortness of breath, chest pain, palpitations, nausea, vomiting, diarrhea, constipation, abdominal pain, or any urinary issues. FORMERLY [facility], [facility] Past Medical History Medical History Velasquez esophagus Gastroesophageal reflux disease Gout Kidney stones Mixed hyperlipidemia Obstructive sleep apnea Prediabetes Systolic dysfunction Vitamin D deficiency, unspecified Surgical History Surgical History History of laparoscopic cholecystectomy (02/2022) History of umbilical hernia repair (2015) Family History Family History Mother Hypertension Skin cancer Father Hypertension Leukemia Sibling Diabetes mellitus Social History Social History Social History: Surrogate medical decision maker: Rebekah Ferrellt, spouse. Code status: Full code. 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 Spiritual care concerns: No Comments At the time of my signature, I reviewed and agree with the nursing past medical, surgical, social, and family history. There is no relevant family history pertinent to the patient complaint. Exam Narrative: General: Well-developed, well nourished, in no apparent distress Head: Normocephalic, atraumatic. Cardio: Regular rate and rhythm, s1 and s2 normal, no murmur appreciated. Resp: Clear to auscultation bilaterally, no rhonchi, rales, wheezing or rubs. Musculoskeletal: No deformity, general tender to palpation over the left knee joint, mild swelling when compared to the right knee joint with mild redness and erythema, unable to flex or extend the knee fully due to discomfort, muscle strength strong and equal, peripheral pulse strong, no cyanosis, limping gait and station Course Course Emergency Course: Portions of this record may have been created with voice recognition software. Level of Care: Express Care Visit Vital Signs Vital signs: Vital Signs Temperature 36.4 C 05/11/24 17:05 Pulse Rate 67 05/11/24 17:05 Respiratory Rate 16 05/11/24 17:05 Blood Pressure 124/84 05/11/24 17:05 Pulse Oximetry 100 05/11/24 17:05 T
[2024-05-11 17:05] VITALS: BP 124/84; PULSE 67; RESP 16; TEMP 36.4; O2SAT 100
== END 2024-05-11 17:18 | disposition home or self-care (01) ==
PROVIDERS: Emergency Provider Nurse Practitioner Family; PCP Family Medicine
DX: M10.9 Gout, unspecified (principal); K22.70 Barrett's esophagus without dysplasia; K21.9 Gastro-esophageal reflux disease without esophagitis; E78.2 Mixed hyperlipidemia; R73.03 Prediabetes; E55.9 Vitamin D deficiency, unspecified
CPT/HCPCS: 99213; G0463

== ENCOUNTER 2024-06-11 16:10 | Outpatient (CLI) | payer BC, SELFPAY ==
[2024-06-11 16:29] LABS: Basophils Percent Auto 0.2 % (0.2-1.2); Eosinophils Absolute Auto 0.1 K/mm3 (0-0.3); Eosinophils Percent Auto 0.5 % (0-4.4); Hematocrit 41.2 % (42.0-52.0); Hemoglobin 13.5 g/dL (14.0-18.0); Immature Granulocyte Absolute 0.05 K/mm3 (0.00-0.031); Immature Granulocyte Percent A 0.5 % (0-0.5); Lymphocytes Percent Auto 8.2 % (18.3-44.2); Mean Corpuscular HGB Conc 32.8 g/dl (32-36); Mean Corpuscular Hemoglobin 28.2 pg (26-34); Mean Platelet Volume 9.9 fl (7.4-10.4); Monocytes Absolute Auto 0.8 K/mm3 (0.1-0.6); Monocytes Percent Auto 6.9 % (2.6-8.5); Neutrophils Absolute Auto 9.2 K/mm3 (1.3-6.7); Neutrophils Percent Auto 83.7 % (45.5-73.1); Platelet Count Result 214 k/mm3 (150-375); Red Blood Count 4.79 M/mm3 (4.6-6.20); Red Cell Distribution Width 12.2 % (11.5-14.5); White Blood Count 10.9 K/mm3 (4.5-10.0)
[2024-06-11 16:38] LABS: Uric Acid 8.4 mg/dL (3.5-8.5)
== END 2024-06-11 16:11 | disposition home or self-care (01) ==
LOC: ANHLAB 16:12
PROVIDERS: PCP Family Medicine; Visit Provider Student in an Organized Health Care Education/Training Program
DX: Z00.00 Encounter for general adult medical examination without abnormal findings (principal); R73.9 Hyperglycemia, unspecified; M10.9 Gout, unspecified
CPT/HCPCS: 36415; 83036; 84550; 85025

== ENCOUNTER 2024-10-16 18:16 | Emergency (ER) | payer BC, SELFPAY ==
[2024-10-16 18:24] VITALS: BP 132/91; PULSE 68; RESP 15; TEMP 36.5; O2SAT 99
--- NOTE | 2024-10-16 18:28 | ED.SKABFB ---
HPI - Skin/Abscess/Foreign Bdy General Chief complaint: Skin/Abscess/Foreign Body Stated complaint: Gout Time Seen by Provider: 10/16/24 18:32 Source: patient and RN notes reviewed Mode of arrival: ambulatory Limitations: dementia History of Present Illness HPI narrative: 54 year old male presents with concern for gout flare up. Reports he was out of town and did not bring his allopurinol, he then was eating barbecue and other types of foods he should not eat. He reports he has a gout flare-up in his left lateral foot and now starting to hurt in his 1st digit of the left foot. MD complaint: other (Redness) Related Data Allergies Allergy/AdvReac Type Severity Reaction Status Date / Time No Known Drug Allergies Allergy Unknown none Verified 07/20/24 09:55 Review of Systems Review of Systems: CONSTITUTIONAL: Denies malaise, chills, sweats, or fever. EYES: Denies redness, or discharge. ENT: Denies rhinorrhea, congestion, swollen lips, swollen tongue CARDIOVASCULAR: Denies chest pain, palpitations, or edema. RESPIRATORY: Denies cough or dyspnea. GASTROINTESTINAL: Denies abdominal pain, nausea, vomiting SKIN: Reports redness tenderness in the left lateral foot. Denies purulent drainage, vesicles, bullae, numbness, pain beyond proportion MUSCULOSKELETAL: Denies joint pain or myalgia. NEUROLOGIC: Denies headache. All systems reviewed & are unremarkable except as noted in HPI and below PMFSH Past Medical History Medical History (Updated 10/16/24 @ 18:39 by Leilani Correa NP) Acute kidney injury Velasquez esophagus Bronchitis Wilmer-Ocampo breathing Cough Daytime hypersomnia Dehydration Encounter for surgical aftercare following surgery on the digestive system Flu-like symptoms Gastro-esophageal reflux disease without esophagitis Gastroenteritis Gastroesophageal reflux disease Gout IFG (impaired fasting glucose) Kidney stones Mixed hyperlipidemia Obstructive sleep apnea Sepsis Shoulder injury related to vaccine administration (SIRVA) Systolic dysfunction Vitamin D deficiency, unspecified Surgical History Surgical History History of laparoscopic cholecystectomy (02/2022) History of umbilical hernia repair (2015) Family History Family History Mother Hypertension Skin cancer Father Hypertension Leukemia Sibling Diabetes mellitus Social History Social History (Reviewed 08/23/24 @ 09:56 by Suma Law Social History: Surrogate medical decision maker: Rebekah Jorge, spouse. Code status: Full code. 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 Gender identity (if verbalized by the patient): Male Sexual Orientation (if Verbalized by the Patient): Straight or Heterosexual Spiritual care concerns: No Comments At time of signature, agree with nursing past medical, surgical, social and family history. There is no relevant family history pertinent to the presenting complaint Exam Narrative: GENERAL: Well-appearing, well-nourished, and in no acute distress. HEAD: Normocephalic, atraumatic. EYES: PERRLA, conjunctivae clear ENT: Mucous membranes moist. NECK: Supple. No lymphadenopathy CHEST: Clear to auscultation. No respiratory distress. HEART: Regular rate and rhythm. SKIN: Warm, dry. Erythema, tenderness, warmth with sharp margins noted to the left lateral foot. No vesicles, bullae, necrosis, ecchymosis, crepitus noted. NEURO: Alert and oriented x3. PSYCH: Normal mood and affect Course Course Emergency Course: Patient is aware of diagnosis, understands and agrees to treatment plan. Anticipatory guidance given. Patient agrees to follow-up as directed and is aware of reasons to seek care at the emergency department. Portions of this record may have been created with voice recognition software Level of Care: Express Care Visit Vital Signs Vital signs: Vital Signs Temperature 97.7 F 10/16/24 18:24 Pulse Rate 68 10/16/24 18:24 Respiratory Rate 15 10/16/24 18:24 Blood Pressure 132/91 H 10/16/24 18:24 Pulse Oximetry 99 10/16/24 18:24 Oxygen Delivery Room Air 10/16/24 18:24 Temperature 97.7 F 10/16/24 18:24 Pulse Rate 68 10/16/24 18:24 Respiratory Rate 15 10/16/24 18:24 Blood Pressure 132/91 H 10/16/24 18:24 Pulse Oximetry 99 10/16/24 18:24 Oxygen Delivery Room Air 10/16/24 18:24 Reviewed. MDM - Skin/Abscess/Foreign Bdy MDM Narrative Medical decision making narrative: I evaluated this in the [facility] care. History is obtained from patient who is an independent historian and physical exam was performed.? Available medical records were reviewed. ? Exam findings and relevant testing show no acute concerns or changes; patient is non-toxic appearing and is in no distress. No risk factors or findings concerning for epidural abscess, diskitis, vertebral osteomyelitis, cord compression, cauda equina, vertebral fracture or bone malignancy, AAA, or pyelonephritis. Patient instructed to consider further imaging and workup through their primary care physician as an outpatient if symptoms persist. Does not appear at this time to be erythema multiforme, bullous, SJS, TEN; no evidence at this time to suggest RMSF, NSTI, endocarditis or Lyme disease; patient looks well, nontoxic and is tolerating oral intake; no neurologic signs or symptoms; no headache, photophobia or neck pain; afebrile.? Patient does not have history of of penetrating trauma, laceration, blunt trauma, recent surgery, immunosuppression, malignancy, obesity, alcoholism, corticosteroid use.? Discussed the importance of follow-up, patient agrees; question, cellulitis versus necrotizing soft tissue infection versus abscess.?? Patient is appropriate for outpatient treatment and follow-up. Critical Care Time Critical Care Time Critical Care Time: No Discharge Plan Discharge Clinical Impression: Gout Patient Disposition: Home, Self-Care Condition: Stable Instructions: Gout (ED) Additional Instructions: 1) Please follow-up with your primary care doctor in the next 1-2 days. 2) If you have any worsening of symptoms or any other urgent concerns please go to the ER. 3) Please take medications as prescribed and continue taking your home medications as usual. 4) Please read and follow information included in discharge instructions. Prescriptions: New colchicine 0.6 mg capsule See Rx Instructions .ROUTE .COMPLEX Qty: 3 0RF Rx Instructions: take 2 caps now, then one hour later take one cap No Action ondansetron HCl 4 mg tablet 4 mg PO Q8H PRN (Reason: nausea and vomiting) Qty: 10 0RF allopurinol 100 mg tablet 100 mg PO DAILY Qty: 90 1RF sildenafil 25 mg tablet See Rx Instructions .ROUTE .COMPLEX Qty: 30 0RF Dose Instruction: TAKE ONE TABLET BY MOUTH ONCE DAILY 30 MINUTES TO 4 HOURS BEFORE SEXUAL ACTIVITY NEEDED. Rx Instructions: TAKE ONE TABLET BY MOUTH ONCE DAILY 30 MINUTES TO 4 HOURS BEFORE SEXUAL ACTIVITY NEEDED. esomeprazole magnesium 40 mg capsule,delayed release(DR/EC) See Rx Instructions .ROUTE .COMPLEX Qty: 90 3RF Dose Instruction: TAKE 1 CAPSULE DAILY Rx Instructions: TAKE 1 CAPSULE DAILY atorvastatin 40 mg tablet See Rx Instructions .ROUTE .COMPLEX Qty: 90 2RF Dose Instruction: TAKE 1 TABLET DAILY Rx Instructions: TAKE 1 TABLET DAILY Follow-up/Referrals: Gisela Egan MD [Primary Care Provider] - Stand Alone Forms: Work/School Release IP Time of Disposition: 18:40
== END 2024-10-16 18:43 | disposition home or self-care (01) ==
PROVIDERS: Emergency Provider Nurse Practitioner; PCP Family Medicine
DX: M10.9 Gout, unspecified (principal); E78.2 Mixed hyperlipidemia
CPT/HCPCS: 99213; G0463

== ENCOUNTER 2024-10-24 11:26 | Outpatient (CLI) | payer BC, SELFPAY ==
[2024-10-24 12:23] LABS: Alanine Aminotransferase 41 U/L (6-50); Albumin Level 4.4 g/dL (3.5-5.1); Alkaline Phosphatase 101 U/L (38-126); Anion Gap 6 mmol/L (4-12); Aspartate Amino Transferase 30 U/L (17-59); Bilirubin,Total 0.7 mg/dL (0.2-1.3); Blood Urea Nitrogen 15 mg/dL (9-20); Calcium 8.9 mg/dL (8.4-10.2); Carbon Dioxide 31 mmol/L (22-30); Chloride 105 mmol/L (98-107); Estimated Glomerular Filt Rate > 60; Glucose 106 mg/dL (65-110); Potassium 4.1 mmol/L (3.4-5.0); Sodium 142 mmol/L (137-145)
[2024-10-24 12:30] LABS: Creatinine Urine 115.4 mg/dL
[2024-10-24 12:33] LABS: MALB Creatinine Ratio 17.9 mg/g (0-30); Microalbumin Urine Random 20.7 mg/L (0-16.7)
[2024-10-24 12:48] LABS: Hemoglobin A1C 6.9 % (<5.7)
== END 2024-10-24 11:27 | disposition home or self-care (01) ==
LOC: ANHLAB 11:27
PROVIDERS: PCP Family Medicine; Visit Provider Student in an Organized Health Care Education/Training Program
DX: E11.9 Type 2 diabetes mellitus without complications (principal)
CPT/HCPCS: 36415; 80053; 82043; 83036

== ENCOUNTER 2024-12-17 12:50 | Emergency (ER) | payer BC, SELFPAY ==
[2024-12-17 12:58] VITALS: BP 144/78; PULSE 62; RESP 18; TEMP 36.4; O2SAT 100
--- NOTE | 2024-12-17 13:06 | ED.SKABFB ---
HPI - Skin/Abscess/Foreign Bdy General Stated complaint: Left Finger Nail Time Seen by Provider: 12/17/24 13:06 Source: patient Mode of arrival: ambulatory Limitations: no limitations History of Present Illness HPI narrative: 54 year here requesting help to remove nail from left ring finger that was bent backwards the other day at work. States he cannot get his nail clipper underneath the nail to remove the tip. Hit nail on a box at work and it bent backwards. Has been snagging on clothing worsening pain. All systems reviewed and negative except as noted above. Related Data Home Medications ?Medication ?Instructions ?Recorded ?Confirmed ?Last Taken ?Type metformin 500 mg tablet,extended 500 mg PO BID 10/24/24 11/14/24 Unknown History release 24 hr Allergies Allergy/AdvReac Type Severity Reaction Status Date / Time No Known Drug Allergies Allergy Unknown none Verified 12/17/24 12:58 Review of Systems Review of Systems: CONSTITUTIONAL: Denies fever, chills, or sweats. EYES: Denies visual changes, redness, or discharge. ENT: Denies rhinorrhea, congestion, sore throat, or otalgia. CARDIOVASCULAR: Denies chest pain, palpitations, or edema. RESPIRATORY: Denies cough or dyspnea. GASTROINTESTINAL: Denies abdominal pain, nausea, vomiting, or diarrhea. GENITOURINARY: Denies dysuria or hematuria. SKIN: Denies rash or itching. Reports broken finger nail to left ring finger needs removed. MUSCULOSKELETAL: Denies back pain, joint pain, or myalgia. NEUROLOGIC: Denies headache, numbness, or weakness. PSYCHIATRIC: Denies anxiety or depression. All other systems reviewed are negative, except as documented in HPI. [facility] Past Medical History Medical History Velasquez esophagus Sepsis Acute kidney injury Dehydration Gastroesophageal reflux disease Wilmer-Ocampo breathing Obstructive sleep apnea Systolic dysfunction Daytime hypersomnia Bronchitis Shoulder injury related to vaccine administration (SIRVA) Encounter for surgical aftercare following surgery on the digestive system Kidney stones Cough Flu-like symptoms Gout Gastroenteritis Gastro-esophageal reflux disease without esophagitis IFG (impaired fasting glucose) Mixed hyperlipidemia Vitamin D deficiency, unspecified Surgical History Surgical History History of laparoscopic cholecystectomy (02/2022) History of umbilical hernia repair (2016) Family History Family History Mother Hypertension Skin cancer Father Hypertension Leukemia Sibling Diabetes mellitus Social History Social History Social History: Surrogate medical decision maker: Rebekah Jorge, spouse. Code status: Full code. 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 Gender identity (if verbalized by the patient): Male Sexual Orientation (if Verbalized by the Patient): Straight or Heterosexual Spiritual care concerns: No Comments At time of signature, agree with nursing past medical, surgical, social and family history. There is no relevant family history pertinent to the presenting complaint. Exam Narrative: GENERAL: This is a well-nourished, well-developed patient, in no apparent distress. HEAD: normocephalic, atraumatic. EYES: PERRL. Sclera clear/white. Vision is grossly intact. EARS: External ears normal NOSE: External nose normal NECK: Neck supple, non-tender without lymphadenopathy, masses or thyromegaly. CARDIOVASCULAR: Regular rate and rhythm without murmurs, gallops, or rubs. RESPIRATORY: Clear to auscultation. Breath sounds equal bilaterally. No wheezes, rales, or rhonchi. SKIN: warm, Dry, intact with no suspicious lesions or rash, good texture and turgor. broken tip of fingernail to L ring finger NEURO: awake, alert, and oriented to person, place and time. There were no obvious focal neurologic abnormalities. EXTREMITIES: No joint tenderness, effusion, or edema noted. No calf tenderness. Negative Homans sign bilaterally. BACK: Nontender without deformity. No CVA tenderness. Course Course Level of Care: Express Care Visit Vital Signs Vital signs: Vital Signs Temperature 36.4 C 12/17/24 12:58 Pulse Rate 62 12/17/24 12:58 Respiratory Rate 18 12/17/24 12:58 Blood Pressure 144/78 H 12/17/24 12:58 Pulse Oximetry 100 12/17/24 12:58 Oxygen Delivery Room Air 12/17/24 12:58 Temperature 36.4 C 12/17/24 12:58 Pulse Rate 62 12/17/24 12:58 Respiratory Rate 18 12/17/24 12:58 Blood Pressure 144/78 H 12/17/24 12:58 Pulse Oximetry 100 12/17/24 12:58 Oxygen Delivery Room Air 12/17/24 12:58 Reviewed Procedures Other Procedure Procedure 1: Other Procedure: removed free egde of fingernail L ring finger with scissors. no injury to nail plate, not lifted from nail bed. antibiotic ointment and bandaid placed MDM - Skin/Abscess/Foreign Bdy MDM Narrative Medical decision making narrative: removed free egde of fingernail L ring finger with scissors. no injury to nail plate, not lifted from nail bed. Patient is aware of diagnosis, understands and agrees to treatment plan. Anticipatory guidance given. Patient agrees to follow-up as directed and is aware of reasons to seek care at the emergency department. Portions of this record may have been created with voice recognition software Discharge Plan Discharge Clinical Impression: Injury of nail bed of finger of left hand Patient Disposition: Home, Self-Care Condition: Stable Instructions: Antibiotic Form Additional Instructions: Keep affected area clean and dry. Wash with soap and water. Apply Neosporin or similar [id number] antibiotic ointment 2 to 3 times a day for 3-5 days. If you have signs of infection such as redness, warmth, swelling, pain follow-up with your primary care physician. Patient Language: Ukrainian Prescriptions: No Action allopurinol 100 mg tablet 100 mg PO DAILY Qty: 90 1RF sildenafil 25 mg tablet See Rx Instructions .ROUTE .COMPLEX Qty: 30 0RF Dose Instruction: TAKE ONE TABLET BY MOUTH ONCE DAILY 30 MINUTES TO 4 HOURS BEFORE SEXUAL ACTIVITY NEEDED. Rx Instructions: TAKE ONE TABLET BY MOUTH ONCE DAILY 30 MINUTES TO 4 HOURS BEFORE SEXUAL ACTIVITY NEEDED. metformin 500 mg tablet extended release 24 hr 500 mg PO BID trazodone 50 mg tablet 50 mg PO QHS PRN (Reason: insomnia) Qty: 30 1RF esomeprazole magnesium 40 mg capsule,delayed release(DR/EC) See Rx Instructions .ROUTE .COMPLEX Qty: 90 3RF Dose Instruction: TAKE 1 CAPSULE DAILY Rx Instructions: TAKE 1 CAPSULE DAILY atorvastatin 40 mg tablet See Rx Instructions .ROUTE .COMPLEX Qty: 90 2RF Dose Instruction: TAKE 1 TABLET DAILY Rx Instructions: TAKE 1 TABLET DAILY prednisone 10 mg tablet 10 mg PO DAILY Qty: 30 0RF Rx Instructions: Take PO 4 tabs daily x3 days, 3 tabs daily x3 days, 2 tabs daily x3 days, 1 tab daily x3 days Follow-up/Referrals: Julisa,Gisela Ellis MD [Primary Care Provider] - Time of Disposition: 13:13
== END 2024-12-17 13:15 | disposition home or self-care (01) ==
PROVIDERS: Emergency Provider Nurse Practitioner Family; PCP Family Medicine
DX: S69.92XA Unspecified injury of left wrist, hand and finger(s), initial encounter (principal); W22.8XXA Striking against or struck by other objects, initial encounter; Y99.0 Civilian activity done for income or pay; K22.70 Barrett's esophagus without dysplasia; K21.9 Gastro-esophageal reflux disease without esophagitis; M10.9 Gout, unspecified; R73.01 Impaired fasting glucose; E78.2 Mixed hyperlipidemia
CPT/HCPCS: 99212; G0463

== ENCOUNTER 2025-05-17 09:30 | Outpatient (CLI) | payer BC, SELFPAY ==
--- NOTE | ~2025-05-17 | XR_ITS ---
Clinical Indication: Cough PA and lateral views of the chest: Comparison: 01/11/2024 Findings: The lungs are clear, without evidence of focal consolidation or pleural effusion. Cardiome diastinal silhouette is within normal limits. Bones and soft tissues are unremarkable. Impression: Normal chest. Reviewed, dictated and finalized at location . Impression: Normal chest.
== END 2025-05-17 09:31 | disposition home or self-care (01) ==
PROVIDERS: PCP Family Medicine; Visit Provider Physician Assistant
DX: R05.9 Cough, unspecified (principal)
CPT/HCPCS: 71046

== ENCOUNTER 2025-07-04 10:22 | Outpatient (CLI) | payer BC, SELFPAY ==
[2025-07-04 11:05] LABS: Hematocrit 37.3 % (42.0-52.0); Hemoglobin 12.1 g/dL (14.0-18.0); Immature Granulocyte Percent A 0.8 % (0-0.5); Lymphocytes Absolute Auto 1.03 K/mm3 (0.9-3.2); Mean Corpuscular HGB Conc 32.4 g/dl (32-36); Mean Corpuscular Hemoglobin 27.6 pg (26-34); Mean Corpuscular Volume 85.2 fl (80-100); Nucleated Red Blood Cells Absolute Auto 0.000 K/mm3 (0.0-0.012); Nucleated Red Blood Cells Perc 0.0 % (0.0-0.2); Platelet Count Result 201 k/mm3 (150-375); Red Blood Count 4.38 M/mm3 (4.6-6.20); White Blood Count 9.6 K/mm3 (4.5-10.0)
[2025-07-04 11:28] LABS: Alanine Aminotransferase 40 U/L (6-50); Albumin Level 3.8 g/dL (3.5-5.1); Alkaline Phosphatase 118 U/L (38-126); Anion Gap 8 mmol/L (4-12); Aspartate Amino Transferase 30 U/L (17-59); Bilirubin,Total 0.4 mg/dL (0.2-1.3); Blood Urea Nitrogen 11 mg/dL (9-20); Calcium 8.7 mg/dL (8.4-10.2); Carbon Dioxide 27 mmol/L (22-30); Chloride 103 mmol/L (98-107); Cholesterol 147 mg/dL (0-200); Estimated Glomerular Filt Rate > 60; Glucose 166 mg/dL (65-110); HDL Direct 27 mg/dL; Potassium 3.7 mmol/L (3.4-5.0); Sodium 138 mmol/L (137-145); Total Protein 6.4 g/dL (6.3-8.2); Triglycerides 143 mg/dL (<150); Uric Acid 5.5 mg/dL (3.5-8.5)
[2025-07-04 11:40] LABS: Hemoglobin A1C 7.6 % (<5.7)
[2025-07-04 11:41] LABS: MALB Creatinine Ratio 147.6 mg/g (0-30)
== END 2025-07-04 10:23 | disposition home or self-care (01) ==
LOC: ANHLAB 10:24
PROVIDERS: PCP Family Medicine; Visit Provider Student in an Organized Health Care Education/Training Program
DX: E11.9 Type 2 diabetes mellitus without complications (principal); I10 Essential (primary) hypertension; E78.5 Hyperlipidemia, unspecified
CPT/HCPCS: 36415; 80053; 80061; 82043; 83036; 84550; 85025

== ENCOUNTER 2025-09-13 09:29 | Outpatient (CLI) | payer BC, SELFPAY ==
--- OUTSIDE RECORDS SUMMARY | 2025-09-13 09:58 | XMS_ITS | Data Portability ---
Author Organization [facility] [employer], Main Office Address [address] [place] [address] Care Team Providers Care Winder Helper Name Role Phone PATTI CH Primary Care Provider PATTI CH Referring Provider Assessment Encounter Date Assessment Date Assessment LastModified by Organization Details LastModified Time 01/27/2023 01/27/2023 Patient continues with a frozen shoulder left although he is making progress with conservative treatment. He does have some tendinitis on the MRI scan but most of it appears to be just adhesive capsulitis potentially for flared up by the injection that he had. Recommended continue with conservative treatment is he is progressing I am little concerned that he continues to have a fair bit of pain in spite the fact he is getting motion back. Since the prednisone did work will try Voltaren for prescription drug management for pain and inflammation. Recommended continue with exercise and therapy. Anticipate follow-up in a month to reassess at that point. [email or web address] Not available 01/27/2023 11:40:37 Plan of Treatment Reminders Order Date Submit Date Provider Last Modified By Organization Details Last Modified Time Details Appointments None recorded. Lab None recorded. Referral None recorded. Procedures None recorded. Surgeries None recorded. Imaging None recorded. Medication Orders diclofenac sodium 75 mg tablet,mustapha yed release 2022 023 ksenia [address] [id number], [address], [place], [place], [phone], 11:40:56 Patient TargetsNo targets recorded. Patient InstructionsNo instructions recorded. Reason for Referral None Reported. Results Created Date Observation Date Name Description Value Unit Range Abnormal Flag Note LastModifiedBy Organization Detail LastModifiedTime 12/30/19 23 XR, shoul mikaela No observ ation record ed. [id number] [id number] [place] [address], [place], [address], 01/26/2023 10:50:27 12/30/19 23 MRI, shoul mikaela, w/o contr ast No observ ation record ed. [id number] Not Available 01/26/2023 10:50:27 Result Notes None recorded. Problems Name Problem SNOMED Code Status Onset Date Resolution Date Notes Provider Name and Address Organization Details Recorded Time Injury of hip region 752337472 Active Not Available [facility] 3 10:45:49 Knee pain Active Not Available [facility] 3 10:45:49 Pain radiating to left shoulder 039047387 Active 2022 ISI Magdaleno null, [place] [facility] 3 11:21:38 Adhesive capsulitis of left shoulder 0034512063969 07 Active 2022 Karen Myers RMA null, [place] [facility] 3 11:21:48 Pain of left shoulder blade 391819750 Active 2022 ISI Magdaleno null, [place] [facility] 3 11:21:55 Pain of left shoulder joint 3891982048765 9109 Active 2022 ISI Magdaleno null, [place] - [facility] 3 11:22:07 Problem Notes None recorded. Procedures Surgical History Date Name Laterality Status Provider Name and Address Organization Details Recorded Time 11/28/19 21 cholecystectomy completed Not Available [facility] 0311/2022 10:42:39 11/28/19 16 Hernia Surgery completed Not Available [facility] 01/26 10:42:39 Imaging Results None recorded. Procedure Notes None recorded. Medical Equipment None Reported. Medications Name Sig Start Date Stop Date Status Note LastModified by Organization Details LastModified Time prednisone 10 mg tablet active Not Available Not Available Not Available hydrocodone 5 mg-acetamin ophen 325 mg tablet TAKE 1 TABLET BY MOUTH EVERY 6 HOURS NEEDED FOR PAIN 12/30 completed Not Available Not Available Not Available prednisone 20 mg tablet 12/30 completed Not Available Not Available Not Available dexamethaso ne 6 mg tablet TAKE 1 TABLET BY MOUTH TWICE DAILY FOR 2 DAYS THEN 1/2 TABLET TWICE DAILY 12/30 completed Not Available Not Available Not Available sulfamethox azole 800 mg-trimetho prim 160 mg tablet 12/30 completed Not Available Not Available Not Available sildenafil 25 mg tablet TAKE ONE TABLET BY MOUTH ONCE DAILY 30 MINUTES TO 4 HOURS BEFORE SEXUAL ACTIVITY NEEDED active Not Available Not Available No t Available prednisone 10 mg tablets in a dose pack Take 1 tab by mouth, 3 times a day for 3 daysTake 1 tab by mouth 2 times a day for 2 daysTake 1 tab by mouth once a day for 1 day active Not Available Not Available No t Available tamsulosin 0.4 mg capsule 12/30 completed Not Available Not Available Not Available Kenalog 10 mg/mL suspension for injection In office injection administe red by the provider active [facility] [place]: [phone] Not Available Not Available Not Available esomeprazol e magnesium 40 mg capsule,del ayed release TAKE 1 CAPSULE BY MOUTH DAILY active Not Available Not Available No t Available diclofenac sodium 75 mg tablet,mustapha yed release TAKE 1 TABLET BY MOUTH TWICE DAILY active Not Available Not Available No t Available ergocalcife rol (vitamin D2) 1,250 mcg (50,000 unit) capsule 12/30 completed Not Available Not Available Not Available methylpredn isolone 4 mg tablets in a dose pack 12/30 completed Not Available Not Available Not Available ondansetron 4 mg disintegrat ing tablet 12/30 completed Not Available Not Available Not Available metformin ER 500 mg tablet,exte nded release 24 hr active Not Available Not Available Not Available naproxen 500 mg tablet 12/30 completed Not Available Not Available Not Available ropivacaine (PF) 5 mg/mL (0.5 %) injection solution Take 20 mg by injection route. active [facility] [place] [phone] Not Available Not Available Not Available Paxlovid 300 mg (150 mg x 2)-100 mg tablets in a dose pack FOLLOW PACKAGE DIRECTION S 12/30 completed Not Available Not Available Not Available Vitals Date Recorded Body mass index (BMI) Body height Body weight Provider Name and Address Organization Details Last Updated DateTime 12/30/2022 29.6 kg/m2 177.8 cm 32624.03 g Not Available Allan marilia 01/26/2023 10:44:41 Date Recorded Body height Provider Name an d Address Organization Details Last Updated DateTime 01/27/2023 177.8 cm ISI Magdaleno [place] [facility] 01/27/2023 11:21:05 Social History None recorded. Functional Status Question Answer Note LastModified by Organizat ion Details LastModified Time What is your level of alcohol consumption? Occasional [id number] Information not available 01/26/2023 Mental Status None recorded. Family History Relationship Description Onset Age of this Age Resolved Age Notes LastModified by Organization Details LastModified Time Father Family history of malignant neoplasm [id number] Not available 01/26/2023 10:42:41 Mother Family history of malignant neoplasm [id number] Not available 01/26/2023 10:42:41 Mother Hypertensive disorder [id number] Not available 01/26/2023 10:42:41 Sister Diabetes mellitus [id number] Not available 01/26/2023 10:42:41 Sister Diabetes mellitus [id number] Not available 01/26/2023 19:12:11 Medical History Condition Response DIABETES, TYPE Y GOUT Y Past Encounters Encounter ID Performer Location Encounter Start Date Encounter Closed Date Diagnosis/Indication Diagnosis SNOMED-CT Code Diagnosis ICD10 Code Diagnosis IMO Codes Diagnosis Note [id number] Emmett Trejo MD [facility] [place] [address] [place] [address] 12/30/2022 00:00:00 12/30/2022 11:24:28 [id number] Emmett Trejo MD [facility] [place] [address] [place] [address] 01/27/2023 11:09:05 01/27/2023 11:50:16 Adhesive capsulitis of left shoulder 2224504416 59346 M75.02 Pain of le ft shoulder joint 9023070860 1469224 M25.512 Health Concerns Section Related Observation LastModified by Organization Detai ls LastModified Time None Recorded Concern Status LastModified by Organization Details LastModified Time None Recorded Advance Directives Directive None Recorded Payers Insurance Date Sequence Insurance Name Policy Number Policy Pichardo Covered Member ID Pichardo Member ID Guarantor Name 02/26/2023 1 [place] [id number] Jerrica Sonny Jorge [id number] Sonny Jorge Notes Date Note Type Note Provider Name and Address Organization Details Recorded Time 01/27/2023 text/html Patient returns for his shoulder left. He is making progress in therapy at least as far as motion goes. He still has a fair bit of pain and he has still got difficulty with internal rotation he can only go to his back pocket. He states the prednisone did help her did last noted the shot. As he is reluctant to consider any more today. Emmett Trejo MD [address] [place] [address], [address] [place] [address], [place], [address], [place] [facility] Rayn 01/27/2023 11:40:51
[2025-09-13 10:13] LABS: Hematocrit 37.5 % (42.0-52.0); Hemoglobin 12.0 g/dL (14.0-18.0); Immature Granulocyte Percent A 0.2 % (0-0.5); Lymphocytes Absolute Auto 1.49 K/mm3 (0.9-3.2); Mean Corpuscular HGB Conc 32.0 g/dl (32-36); Mean Corpuscular Hemoglobin 27.5 pg (26-34); Mean Corpuscular Volume 86.0 fl (80-100); Nucleated Red Blood Cells Absolute Auto 0.020 K/mm3 (0.0-0.012); Nucleated Red Blood Cells Perc 0.2 % (0.0-0.2); Platelet Count Result 198 k/mm3 (150-375); Red Blood Count 4.36 M/mm3 (4.6-6.20); White Blood Count 9.1 K/mm3 (4.5-10.0)
[2025-09-13 10:46] LABS: Alanine Aminotransferase 33 U/L (6-50); Albumin Level 4.1 g/dL (3.5-5.1); Alkaline Phosphatase 109 U/L (38-126); Anion Gap 7 mmol/L (4-12); Aspartate Amino Transferase 23 U/L (17-59); Bilirubin,Total 0.8 mg/dL (0.2-1.3); Blood Urea Nitrogen 13 mg/dL (9-20); Calcium 8.9 mg/dL (8.4-10.2); Carbon Dioxide 30 mmol/L (22-30); Chloride 102 mmol/L (98-107); Cholesterol 122 mg/dL (0-200); Estimated Glomerular Filt Rate > 60; Glucose 109 mg/dL (65-110); HDL Direct 24 mg/dL; Potassium 3.5 mmol/L (3.4-5.0); Sodium 139 mmol/L (137-145); Total Protein 6.6 g/dL (6.3-8.2); Triglycerides 103 mg/dL (<150)
== END 2025-09-13 09:30 | disposition home or self-care (01) ==
LOC: ANHLAB 09:31
PROVIDERS: PCP Family Medicine
DX: D64.9 Anemia, unspecified (principal); E11.9 Type 2 diabetes mellitus without complications; E66.9 Obesity, unspecified
CPT/HCPCS: 36415; 80053; 80061; 85025

== ENCOUNTER 2025-10-21 01:59 | Day surgery (SDC) | payer BC, SELFPAY ==
[2025-10-03 09:31] VITALS: BMI 27.3
[2025-10-21 12:34] VITALS: BP 108/67; PULSE 63; RESP 16; TEMP 36.1; O2SAT 100; BMI 26.2
[2025-10-21] MEDS: LACTATED RINGERS 1,000 ML 150 ML IV CONT (12:44)
--- NOTE | 2025-10-21 12:58 | WPDANESEPPF ---
Anes - Initial Pre Proc Eval Procedure: Operation Date: 10/21/25 13:45 Proposed Procedures p Esophagogastroduodenoscopy EGD - Blayne Campa MD Date/Time: 10/21/25 12:58 Surgeon: Blayne Campa MD Pre Op Diagnosis: Epigastric pain Patient Data Age: 55 Gender: M Height: 1.78 m Weight: 82.8 kg Last Vital Signs Temp 97 F L 10/21/25 12:34 Pulse 63 10/21/25 12:34 Resp 16 10/21/25 12:34 BP 108/67 10/21/25 12:34 Pulse Ox 100 10/21/25 12:34 O2 Del Method Room Air 10/21/25 12:34 Allergies Allergy/AdvReac Type Severity Reaction Status Date / Time metformin AdvReac Intermediate Diarrhea Verified 10/21/25 12:34 Home Medications ?Medication ?Instructions ?Recorded ?Confirmed ?Type metoclopramide HCl 10 mg tablet 10 mg PO Q6H PRN nausea and 02/13/25 10/03/25 Rx (Reglan) vomiting #20 tabs trazodone 50 mg tablet See Rx Instructions .Route 05/20/25 10/03/25 Rx .COMPLEX #90 tabs sildenafil 25 mg tablet See Rx Instructions .Route 06/10/25 10/03/25 Rx .COMPLEX #30 tabs atorvastatin 40 mg tablet See Rx Instructions .Route 06/25/25 10/21/25 Rx .COMPLEX #90 tabs colchicine 0.6 mg capsule 0.6 mg PO DAILY #14 caps 06/25/25 10/03/25 Rx lisinopril 5 mg tablet 5 mg PO DAILY #90 tabs 07/08/25 10/21/25 Rx allopurinol 100 mg tablet 200 mg (2 x 100 mg) PO DAILY #180 07/23/25 10/21/25 Rx tabs esomeprazole magnesium 40 mg See Rx Instructions .Route 09/04/25 10/21/25 Rx capsule,delayed release .COMPLEX #90 caps semaglutide 0.25 mg or 0.5 mg (2 0.5 mg (0.736 mL) subcut WEEKLY #3 10/07/25 10/21/25 Rx mg/3 mL) subcutaneous pen injector mL (Ozempic) Patient hx anesthesia problems: none Family hx anesthesia problems: none Results Review: All pre-operative results and documents have been reviewed as part of the pre-operative evaluation. [facility] Past Medical History Medical History Cough Velasquez esophagus Sepsis Acute kidney injury Dehydration Gastroesophageal reflux disease Wilmer-Ocampo breathing Obstructive sleep apnea Systolic dysfunction Daytime hypersomnia Bronchitis Shoulder injury related to vaccine administration (SIRVA) Encounter for surgical aftercare following surgery on the digestive system Kidney stones Flu-like symptoms Gout Gastroenteritis Gastro-esophageal reflux disease without esophagitis IFG (impaired fasting glucose) Mixed hyperlipidemia Vitamin D deficiency, unspecified Surgical History Surgical History History of laparoscopic cholecystectomy (02/2022) History of umbilical hernia repair (2015) Family History Family History Mother Hypertension Skin cancer Father Hypertension Leukemia Sibling Diabetes mellitus Social History Social History Social History: Surrogate medical decision maker: Rebekah Jorge, spouse. Code status: Full code. 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 Gender identity (if verbalized by the patient): Male Sexual Orientation (if Verbalized by the Patient): Straight or Heterosexual Spiritual care concerns: No Anes - Eval Final PreProcedure Day of Procedure 10/21/25 12:58 Patient weight: normal Lungs: normal air movement Airway: Mallampati scale class II Neurological: alert and oriented Last oral intake: >/= 8 hours ASA classification: III Emergent: no Anesthetic plan: proceed Anesthesia type and monitoring: general GIVS and standard monitoring Results Review: All pre-operative results and documents have been reviewed as part of the pre-operative evaluation. HTN, DM, CLAUDIA on CPAP, now for f/u barretts. Pt can walk 1-2 fos, no cp or sob. Informed Consent: The patient's anesthetic plan and its attendant risks and benefits were discussed with the patient/family/POA. Questions were solicited and answers provided to the satisfaction of the patient/family/POA.
--- NOTE | 2025-10-21 13:27 | P.HP_ITS ---
History of Present Illness History of Present Illness Consent: Risks, benefits, and alternatives have been discussed and questions answered. Patient agrees to proceed with procedure. Chief complaint: Epigastric pain Narrative: Sonny Jorge is a 55 year old male wiht h/o short segment reveles's last egd 2023 on ppi, recently with more cough after using cpap Review of Systems Review of Systems: All systems reviewed & are unremarkable except as noted in HPI and below PMFSH Past Medical History Medical History Cough Reveles esophagus Sepsis Acute kidney injury Dehydration Gastroesophageal reflux disease Wilmer-Ocampo breathing Obstructive sleep apnea Systolic dysfunction Daytime hypersomnia Bronchitis Shoulder injury related to vaccine administration (SIRVA) Encounter for surgical aftercare following surgery on the digestive system Kidney stones Flu-like symptoms Gout Gastroenteritis Gastro-esophageal reflux disease without esophagitis IFG (impaired fasting glucose) Mixed hyperlipidemia Vitamin D deficiency, unspecified Surgical History Surgical History History of laparoscopic cholecystectomy (02/2022) History of umbilical hernia repair (2015) Family History Family History Mother Hypertension Skin cancer Father Hypertension Leukemia Sibling Diabetes mellitus Social History Social History Social History: Surrogate medical decision maker: Rebekah Jorge, spouse. Code status: Full code. 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 Gender identity (if verbalized by the patient): Male Sexual Orientation (if Verbalized by the Patient): Straight or Heterosexual Spiritual care concerns: No Meds Home Medications and Allergies Home Medications ?Medication ?Instructions ?Recorded ?Confirmed ?Type metoclopramide HCl 10 mg tablet 10 mg PO Q6H PRN nause a and 02/13/25 10/03/25 Rx (Reglan) vomiting #20 tabs trazodone 50 mg tablet See Rx Instructions .Route 0 05/20/25 10/03/25 Rx .COMPLEX #90 tabs sildenafil 25 mg tablet See Rx Instructions .Route 0 06/10/25 10/03/25 Rx .COMPLEX #30 tabs atorvastatin 40 mg tablet See Rx Instructions .Route 0 06/25/25 10/21/25 Rx .COMPLEX #90 tabs colchicine 0.6 mg capsule 0.6 mg PO DAILY #14 caps 10/03/25 Rx lisinopril 5 mg tablet 5 mg PO DAILY #90 tabs 07/0810/21/25 Rx allopurinol 100 mg tablet 200 mg (2 x 100 mg) PO DAILY #180 07/23/25 10/21/25 Rx tabs esomeprazole magnesium 40 mg See Rx Instructions .Rout e 09/04/25 10/21/25 Rx capsule,delayed release .COMPLEX #90 caps semaglutide 0.25 mg or 0.5 mg (2 0.5 mg (0.736 mL) sub cut WEEKLY #3 10/07/25 10/21/25 Rx mg/3 mL) subcutaneous pen injector mL (Ozempic) Allergies Allergy/AdvReac Type Severity Reaction Status Date / Time metformin AdvReac Intermediate Diarrhea Verified 10/21/25 12:34 Vital Signs Vital Signs - 24 hr 10/21/25 12:34 Temperature 97 F L Pulse Rate 63 Respiratory Rate 16 Blood Pressure 108/67 Pulse Oximetry 100 Oxygen Delivery Room Air Exam Const: General: comfortable and no acute distress HENMT: Face/Nose/Sinus: Normal nares present Eyes: General: appearance normal, both eyes and all related structures Neck: Neck: no JVD Resp: Auscultation: clear to auscultation bilaterally Cardio: Rate: regular rate Rhythm: regular rhythm GI: Inspection: non-distended GI Palp: Yes Soft to palpation Skin: General skin exam: normal color Extrem: General: normal to inspection Psych: Mental Status: mental status grossly normal Assessment and Plan Assessment and plan (1) Reveles esophagus: Qualifiers: Reveles's esophagus type: with dysplasia of unspecified degree Qualified Code(s): K22.719 - Reveles's esophagus with dysplasia, unspecified Code(s): K22.70 - Reveles's esophagus without dysplasia Status: Acute Assessment and Plan: egd already on ppi (2) Cough: Code(s): R05 - Cough Status: Acute
[2025-10-21 13:32] VITALS: BP 106/65; PULSE 61; RESP 21; O2SAT 97
--- NOTE | 2025-10-21 13:32 | S_PTH ---
PATIENT: Sonny Jorge LOC: [facility]#:[id number] AGE/SX: 55/M ROOM: RE10/21/[address]: Blayne Campa MD : 1970 BED: DIS: 10/21/2025 SPEC #: [id number] RECD: 10/21/25 14:28 STATUS: CARMEN REQ #: [id number] PHYLLIS: 10/21/25 13:[address]: Blayne Campa DEPT: [facility] Surgical RECD BY: Shelbie Oshea ENTERED: 10/21/25 14:28 SP TYPE: Surgical OTHR DR: Emre Corcoran MD Tissues: A - Esophageal Biopsy Procedures: Hematoxylin and Eosin Stain Gross and Microscopic Level 4
[2025-10-21 13:42] VITALS: BP 103/61; PULSE 60; RESP 20; O2SAT 95
[2025-10-21 13:52] VITALS: BP 107/65; PULSE 60; RESP 21; O2SAT 100
== END 2025-10-21 13:58 | disposition home or self-care (01) ==
PROVIDERS: PCP Family Medicine; Referring Provider Student in an Organized Health Care Education/Training Program; Visit Provider Internal Medicine Gastroenterology
PROC: 0DJ08ZZ Inspection of Upper Intestinal Tract, Via Natural or Artificial Opening Endoscopic (ICD-10-PCS; CPT 43239; principal; 2025-10-21 13:45)
DX: K22.70 Barrett's esophagus without dysplasia (principal); K44.9 Diaphragmatic hernia without obstruction or gangrene; Z79.85 Long-term (current) use of injectable non-insulin antidiabetic drugs
CPT/HCPCS: 43239; 82948; 88305; J7120